=== PATIENT | male | born 1995 | race Caucasian/White ===

== ENCOUNTER 2020-05-14 07:30 | Outpatient (REF) | payer BC, SELFPAY ==
[2020-05-14 08:37] LABS: MANUAL DIFF FLAG NO
[2020-05-14 08:42] LABS: Basophils Percent Auto 0.5 % (0-2); Eosinophils Absolute Auto 0.1 X10*3/uL (0.0-0.4); Hematocrit 45.6 % (42-52); Lymphocytes Absolute Auto 1.8 X10*3/uL (1.2-4.9); Lymphocytes Percent Auto 44.8 % (20-40); Mean Corpuscular HGB Conc 35.1 g/dl (31.0-36.0); Mean Corpuscular Hemoglobin 31.7 pg (27.0-33.0); Mean Corpuscular Volume 90.3 fL (80-98); Mean Platelet Volume 9.6 fL (9.4-12.4); Monocytes Absolute Auto 0.5 X10*3/uL (0.1-1.2); Monocytes Percent Auto 12.1 % (2-11); Neutrophils Absolute Auto 1.6 X10*3/uL (2.0-8.3); Neutrophils Percent Auto 39.6 % (45-73); Platelet Count 226 X10*3/uL (160-400); Red Blood Count 5.05 X10*6/uL (4.60-5.80); Red Cell Distribution Width 11.9 % (11.0-16.0); White Blood Count 4.1 X10*3/uL (4.8-10.8)
[2020-05-14 09:16] LABS: Alanine Aminotransferase 13 U/L (0-40); Albumin Level 4.6 g/dL (3.5-5.0); Alkaline Phosphatase 54 U/L (39-117); Anion Gap 12 (12-20); Aspartate Amino Transferase 19 U/L (5-37); Bilirubin Total 1.3 mg/dL (0.0-1.0); Blood Urea Nitrogen 18 mg/dL (9-16); Calcium 9.1 mg/dL (8.4-10.2); Carbon Dioxide 26 mmol/L (22-29); Chloride 106 mmol/L (96-108); Cholesterol 153 mg/dL; Estimated Glomerular Filt Rate > 60; Glucose Fasting 76 mg/dL (60-99); HDL Cholesterol 70 mg/dL; LDL Cholesterol Calculated 72 mg/dl; Sodium 140 mmol/L (135-145); Total Protein 6.9 g/dL (6.5-8.0); Triglycerides 55 mg/dL
[2020-05-14 10:57] LABS: Thyroid Stimulating Hormone 1.96 mIU/mL (0.32-4.0)
== END 2020-05-14 07:31 | disposition home or self-care (01) ==
LOC: HO.LAB 07:30
PROVIDERS: PCP Internal Medicine; Visit Provider Internal Medicine
DX: E03.9 Hypothyroidism, unspecified (principal); E11.9 Type 2 diabetes mellitus without complications; L65.9 Nonscarring hair loss, unspecified
CPT/HCPCS: 36415; 80053; 80061; 84443; 85025

== ENCOUNTER 2020-07-04 09:48 | Outpatient (REF) | payer BC, SELFPAY ==
[2020-07-04 11:05] LABS: Ferritin 435 ng/mL (20-250)
[2020-07-04 11:20] LABS: Thyroid Stimulating Hormone 1.23 uIU/mL (0.32-4.0)
== END 2020-07-04 09:49 | disposition home or self-care (01) ==
LOC: HO.LAB 09:48
PROVIDERS: PCP Internal Medicine; Visit Provider Physician Assistant Medical
DX: L70.0 Acne vulgaris (principal); L65.0 Telogen effluvium; L64.8 Other androgenic alopecia; L21.8 Other seborrheic dermatitis
CPT/HCPCS: 82728; 84443

== ENCOUNTER 2020-07-09 01:17 | Emergency (ER) | payer BC, SELFPAY ==
[2020-07-09 01:32] VITALS: BP 125/50; PULSE 66; RESP 16; TEMP 36.4; O2SAT 99; BMI 21.8
--- NOTE | 2020-07-09 01:32 | ED_ITS ---
HPI - Male Genitourinary General Chief complaint: Urogenital-Male Stated complaint: testicular pain Time Seen by Provider: 07/09/20 01:31 Source: patient Mode of arrival: ambulatory Limitations: no limitations History of Present Illness HPI Narrative: This is a 25-year-old male who presents with complaints of right testicular pain that started approximately 3-4 hours ago and is associated with erythema, swelling, and noted to be ?higher? than the other 1 without any associated penile discharge or lesions noted. Related Data Home Medications Medication Instructions Recorded Confirmed azelaic acid 15 % topical foam TOPICAL QAM 05/07/20 05/07/20 tazarotene 0.1 % topical foam TOPICAL 05/07/20 05/07/20 Previous Rx's Medication Instructions Recorded doxycycline monohydrate 100 mg PO BID 10 Days #20 cap 07/09/20 Allergies Allergy/AdvReac Type Severity Reaction Status Date / Time No Known Allergies Allergy Verified 05/07/20 13:03 Review of Systems Review of Systems: Pertinent positives and negatives as stated in HPI 10 point review of systems is otherwise negative. PMFSH Past Medical History Source: nursing notes reviewed Surgical History History of excision of pilonidal cyst History of wisdom tooth extraction Family History Family History Father Alive and well Mother Alive and well Social History Social History Alcohol intake: current Alcohol intake frequency: a few times a week Smoking Status: Never smoker Use of substances other than those prescribed or required for medical reasons: No Advance Directives: No Physical Exam Vital Signs: Vital Signs: Last Vital Signs Temp 97.6 F 07/09/20 01:32 Pulse 66 07/09/20 01:32 Resp 16 07/09/20 01:32 BP 125/50 L 07/09/20 01:32 Pulse Ox 99 07/09/20 01:32 Body Mass Index 21.8 VITAL SIGNS: Reviewed. GENERAL: Well developed, well nourished, in no acute distress. HEAD: Normocephalic/atraumatic, EYES: PERRLA, EOMI intact without pain, no nystagmus/pallor/icterus noted EARS: Ext canals without abnormality, TMs non-bulging and non-erythematous NOSE: Nares patent bilateral OROPHARYNX: no oral lesions noted, posterior pharynx clear and non-erythematous without noted tonsillar enlargement/erythema/exudates NECK: Supple, no adenopathy LUNGS: Normal breath sounds. No adventitious sounds or accessory muscle use. SpO2<97> CARDIOVASCULAR: Regular rate and rhythm without noted murmurs, no JVD or lower extremity edema. ABDOMEN: Soft, non-tender, non-distended with bowel sounds. No rigidity. No guarding. 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 EXTREMITIES: No cyanosis, clubbing or edema. SKIN: Inspection of the skin reveals no rashes, ulcerations, jaundice, pallor, or petechiae. NEUROLOGIC: Alert and oriented x 4. Strength and sensation to light touch were grossly intact x 4. Course Course Course Narrative: This is a 25-year-old male with history and clinical presentation of acute onset right testicular pain and will rule out testicular torsion versus epididymitis versus inflamed epididymal cyst. On review of all investigations there is evidence of epididymitis but negative for torsion. Urine was sent for STI and patient was empirically treated for epididymitis etiologies based on age. All results and findings were discussed with him at bedside. Discharge Plan Discharge Clinical Impression: Epididymitis Patient Disposition: Home, Self-Care Instructions: Epididymitis (ED) Additional Instructions: 1. Scrotal elevation when lying down with a small towel try folded under the scrotum. Treat pain with [id number] Tylenol and ibuprofen as directed on the outside packaging. 2. Please follow-up with your primary care provider so that the antibiotics can be adjusted based on urine results. The patient and/or family acknowledge understanding of results (as applicable), diagnosis, treatment plan, need for follow up, and symptoms that should prompt a return to the emergency room. Prescriptions: New doxycycline monohydrate 100 mg capsule 100 mg PO BID 10 Days Qty: 20 RF: 0 No Action Finacea 15 % foam topical QAM RF: 0 Fabior 0.1 % foam topical RF: 0 Referrals: Lainer,Eric C, MD [Primary Care Provider] - 2 days (Re-evaluation and outpatient management for right testicular pain and patient found to have epididymitis and was empirically treated for STI, however please follow-up on urine results.)
--- NOTE | 2020-07-09 01:49 | PC.NURSE ---
PT REPORTING RIGHT TESTICLE PAINx4-5 HOURS, ASSOCIATED WITH SWELLING, RIGHT TESTICLE SITTING HIGHER THAN LEFT AND PAIN RADIATING INTO LOWER ABD. MD GUTIERREZ AT BEDSIDE FOR PRIMARY EVAL.
--- NOTE | 2020-07-09 01:53 | US_ITS ---
EXAMINATION: US SCROTUM CLINICAL INFORMATION: Right testicular pain. COMPARISON: 03/21/2016. TECHNIQUE: A sonogram of the scrotum was performed assessing soto-scale appearance and color Doppler flow. FINDINGS: RIGHT: Right testicle measures 4.7 x 2.6 x 3.4 cm, volume 21.2 mL. Parenchymal echotexture is normal. No focal testicular parenchymal lesions are visualized. Normal symmetric intratesticular flow is visualized. Right epididymal head is normal in size. There is increased flow in size to the right epididymal body and tail. There is a small right hydrocele. No varicocele is seen. LEFT: Left testicle measures 4.9 x 2.1 x 3.1 cm, volume 16.9 mL. Parenchymal echotexture is normal. No focal testicular parenchymal lesions are visualized. Normal symmetric intratesticular flow is visualized. Left epididymal head is normal in size. No left hydrocele or varicocele is seen. US/US scrotum doppler IMPRESSION: Normal testes. No testicular torsion. Increased size and vascular flow to the body and tail of the right epididymis suggestive of epididymitis. Small right hydrocele.
--- NOTE | 2020-07-09 02:15 | US_ITS ---
EXAMINATION: US SCROTUM CLINICAL INFORMATION: Right testicular pain. COMPARISON: 03/21/2016. TECHNIQUE: A sonogram of the scrotum was performed assessing soto-scale appearance and color Doppler flow. FINDINGS: RIGHT: Right testicle measures 4.7 x 2.6 x 3.4 cm, volume 21.2 mL. Parenchymal echotexture is normal. No focal testicular parenchymal lesions are visualized. Normal symmetric intratesticular flow is visualized. Right epididymal head is normal in size. There is increased flow in size to the right epididymal body and tail. There is a small right hydrocele. No varicocele is seen. LEFT: Left testicle measures 4.9 x 2.1 x 3.1 cm, volume 16.9 mL. Parenchymal echotexture is normal. No focal testicular parenchymal lesions are visualized. Normal symmetric intratesticular flow is visualized. Left epididymal head is normal in size. No left hydrocele or varicocele is seen. US/US scrotum IMPRESSION: Normal testes. No testicular torsion. Increased size and vascular flow to the body and tail of the right epididymis suggestive of epididymitis. Small right hydrocele.
[2020-07-09] MEDS: Acetaminophen 325 MG TABLET 975 MG PO (03:29)
[2020-07-09] MEDS: Ibuprofen 400 MG TABLET PO (03:30)
[2020-07-09] MEDS: cefTRIAXone sodium 250 MG, Lidocaine HCl 1 % MPF 0.9 ML IM (03:30)
[2020-08-02 09:15] LABS: CT PCR NOT DETECTED (Not Detect.); NG PCR NOT DETECTED (Not Detect.)
== END 2020-07-09 03:37 | disposition home or self-care (01) ==
PROVIDERS: Emergency Provider Student in an Organized Health Care Education/Training Program; PCP Internal Medicine
DX: N45.1 Epididymitis (principal); R10.30 Lower abdominal pain, unspecified; N50.812 Left testicular pain; N50.811 Right testicular pain; Z79.899 Other long term (current) drug therapy
CPT/HCPCS: 76870; 87491; 87591; 93975; 96372; 99284; J0696

== ENCOUNTER 2021-05-21 09:28 | Outpatient (REF) | payer BC, SELFPAY ==
--- NOTE | ~2021-05-21 | XR_ITS ---
EXAMINATION: XR KNEE, RIGHT XR KNEE, LEFT CLINICAL INFORMATION: Pain COMPARISON: None TECHNIQUE: 4 views of each knee, including AP and lateral upright views. FINDINGS: Left knee: No fracture or subluxation. Compartmental joint spaces are maintained. No joint effusion. The soft tissues are unremarkable. Right knee: No fracture or subluxation. Compartmental joint spaces are maintained. No joint effusion. The soft tissues are unremarkable. XR/XR knee RT 4V IMPRESSION: Unremarkable appearance of both knees.
--- NOTE | ~2021-05-21 | XR_ITS ---
EXAMINATION: XR KNEE, RIGHT XR KNEE, LEFT CLINICAL INFORMATION: Pain COMPARISON: None TECHNIQUE: 4 views of each knee, including AP and lateral upright views. FINDINGS: Left knee: No fracture or subluxation. Compartmental joint spaces are maintained. No joint effusion. The soft tissues are unremarkable. Right knee: No fracture or subluxation. Compartmental joint spaces are maintained. No joint effusion. The soft tissues are unremarkable. XR/XR knee LT 4V IMPRESSION: Unremarkable appearance of both knees.
== END 2021-05-21 09:29 | disposition home or self-care (01) ==
LOC: HO.XRAY 09:28
PROVIDERS: PCP Internal Medicine; Visit Provider Nurse Practitioner Family
DX: M25.561 Pain in right knee (principal); M25.562 Pain in left knee; G89.29 Other chronic pain
CPT/HCPCS: 73564

== ENCOUNTER 2021-06-05 09:48 | Outpatient (REF) | payer BC, SELFPAY ==
[2021-06-05 10:29] LABS: Hematocrit 45.8 % (42.0-52.0); Hemoglobin 16.1 g/dl (14.0-18.0); Mean Corpuscular HGB Conc 35.2 g/dl (31.0-36.0); Mean Corpuscular Hemoglobin 31.7 pg (27.0-33.0); Mean Corpuscular Volume 90.2 fL (80.0-98.0); Mean Platelet Volume 9.5 fL (9.4-12.4); Platelet Count 240 X10*3/uL (160-400); Red Blood Count 5.08 X10*6/uL (4.60-5.80); Red Cell Distribution Width 11.9 % (11.0-16.0); White Blood Count 4.8 X10*3/uL (4.8-10.8)
[2021-06-05 10:41] LABS: Anion Gap 14 (12-20); Blood Urea Nitrogen 20 mg/dL (9-16); Calcium 9.2 mg/dL (8.4-10.2); Carbon Dioxide 24 mmol/L (22-29); Chloride 106 mmol/L (96-108); Cholesterol 149 mg/dL; Estimated Glomerular Filt Rate > 60; Glucose Random 82 mg/dL (60-115); HDL Cholesterol 63 mg/dL; LDL Cholesterol Calculated 78 mg/dl; Potassium 4.5 mmol/L (3.3-5.1); Sodium 139 mmol/L (135-145); Triglycerides 40 mg/dL
== END 2021-06-05 09:49 | disposition home or self-care (01) ==
LOC: HO.LAB 09:48
PROVIDERS: PCP Internal Medicine; Visit Provider Nurse Practitioner Family
DX: Z00.00 Encounter for general adult medical examination without abnormal findings (principal); G89.29 Other chronic pain; M25.569 Pain in unspecified knee; L65.9 Nonscarring hair loss, unspecified
CPT/HCPCS: 36415; 80048; 80061; 85027

== ENCOUNTER 2021-07-08 07:55 | Outpatient (REF) | payer BC, SELFPAY ==
[2021-07-08 08:14] LABS: COVID-19 Test Positive (Negative)
== END 2021-07-08 07:56 | disposition home or self-care (01) ==
LOC: HO.LAB 07:55
PROVIDERS: PCP Internal Medicine; Visit Provider Internal Medicine
DX: Z20.822 Contact with and (suspected) exposure to COVID-19 (principal)
CPT/HCPCS: 36415; 87635; C9803

== ENCOUNTER 2022-06-13 08:33 | Outpatient (REF) | payer BC, SELFPAY | END 2022-06-13 08:34 | disposition home or self-care (01) | LOC: HO.SH 08:33 | PROVIDERS: Visit Provider Internal Medicine | DX: Z01.118 Encounter for examination of ears and hearing with other abnormal findings (principal); H93.293 Other abnormal auditory perceptions, bilateral; H93.13 Tinnitus, bilateral | CPT/HCPCS: 92557; 92567 ==

== ENCOUNTER 2022-06-13 09:27 | Outpatient (REF) | payer SELFPAY ==
--- NOTE | 2022-06-13 16:04 | MHC.AU.CER ---
Cerumen Removal- Binaural Date of Visit: 06/13/22 Medical Conditions: Tinnitus; No Conditions of Concern for Cerumen Removal Medications: No Medications of Concern for Cerumen Removal Procedure: Right Ear: Unusual Findings: No Unusual Findings Prior to Removal: Clear Canal Outcome of Procedure: No cerumen removal performed on this ear Left Ear: Unusual Findings: No Unusual Findings Prior to Removal: Significant Cerumen Present Outcome of Procedure: Most cerumen was removed. Recommendations: Follow-up as needed Diagnosis Code(s): Primary Diagnosis: H93.293 Abnormal Auditory Perception Secondary Diagnosis: H93.13 Tinnitus, Bilateral Services Performed: Cerumen Removal (CPT 51045) One Ear Signature: Provider: Sravanthi Sánchez, [facility]
== END 2022-06-13 09:28 | disposition home or self-care (01) ==
LOC: HO.HAP 09:27
PROVIDERS: Visit Provider Internal Medicine
DX: Z46.1 Encounter for fitting and adjustment of hearing aid (principal); H93.293 Other abnormal auditory perceptions, bilateral
CPT/HCPCS: 92700

== ENCOUNTER 2022-11-05 09:05 | Outpatient (REF) | payer BC, SELFPAY ==
[2022-11-05 09:16] LABS: MANUAL DIFF FLAG NO
[2022-11-05 09:33] LABS: Basophils Percent Auto 0.7 % (0-2); Eosinophils Absolute Auto 0.1 X10*3/uL (0.0-0.4); Eosinophils Percent Auto 3.5 % (0-4); Hematocrit 42.6 % (42.0-52.0); Hemoglobin 15.2 g/dl (14.0-18.0); Lymphocytes Absolute Auto 1.7 X10*3/uL (1.2-4.9); Lymphocytes Percent Auto 42.6 % (20-40); Mean Corpuscular HGB Conc 35.7 g/dl (31.0-36.0); Mean Corpuscular Hemoglobin 30.6 pg (27.0-33.0); Mean Corpuscular Volume 85.7 fL (80.0-98.0); Mean Platelet Volume 9.1 fL (9.4-12.4); Monocytes Absolute Auto 0.5 X10*3/uL (0.1-1.2); Monocytes Percent Auto 12.4 % (2-11); Neutrophils Absolute Auto 1.7 x10*3/uL (2.0-8.3); Neutrophils Percent Auto 40.8 % (45-73); Platelet Count 235 X10*3/uL (160-400); Red Blood Count 4.97 X10*6/uL (4.60-5.80)
[2022-11-05 10:00] LABS: Alanine Aminotransferase 32 U/L (0-40); Albumin Level 4.5 g/dL (3.5-5.0); Alkaline Phosphatase 52 U/L (39-117); Anion Gap 10 (12-20); Aspartate Amino Transferase 18 U/L (5-37); Bilirubin Direct 0.7 mg/dL (0.0-0.5); Bilirubin Total 2.2 mg/dL (0.0-1.0); Blood Urea Nitrogen 16 mg/dL (9-16); Calcium 9.3 mg/dL (8.4-10.2); Carbon Dioxide 27 mmol/L (22-29); Chloride 108 mmol/L (96-108); Cholesterol 154 mg/dL; Estimated Glomerular Filt Rate > 60; Glucose Fasting 91 mg/dL (60-99); HDL Cholesterol 63 mg/dL; LDL Cholesterol Calculated 83 mg/dl; Potassium 4.4 mmol/L (3.3-5.1); Sodium 141 mmol/L (135-145); Total Protein 6.4 g/dL (6.5-8.0); Triglycerides 44 mg/dL
[2022-11-07 08:42] LABS: HIV AB/AG Nonreactive (Nonreactive); HIV Num 1 0.07 S/CO (0.00-0.99); ~HepC Num1 0.11 S/CO (0.00-0.79); ~Hepatitis C Antibody Nonreactive (Nonreactive)
[2022-11-07 08:54] LABS: Syphilis Screen Nonreactive (Nonreactive)
[2022-11-08 02:29] LABS: Herpes Simplex Type 1 IgG <0.90 index; Herpes Simplex Type 2 IgG <0.90 index
== END 2022-11-05 09:06 | disposition home or self-care (01) ==
LOC: HO.LAB 09:05
PROVIDERS: Absent Provider Physician Assistant Medical; PCP Internal Medicine; Visit Provider Internal Medicine
DX: E78.5 Hyperlipidemia, unspecified (principal); I10 Essential (primary) hypertension; Z20.2 Contact with and (suspected) exposure to infections with a predominantly sexual mode of transmission; L64.8 Other androgenic alopecia; L21.8 Other seborrheic dermatitis; L81.7 Pigmented purpuric dermatosis
CPT/HCPCS: 36415; 80053; 80061; 80076; 82248; 85025; 86695; 86696; 86780; 86803; 87389

== ENCOUNTER 2023-06-28 09:58 | Outpatient (AMB) | payer BC, SELFPAY ==
[2023-06-28 09:59] VITALS: BP 106/62; PULSE 57; O2SAT 98; BMI 21.8
--- NOTE | 2023-06-28 09:59 | A.OFFPC_ITS ---
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 Bridge Required: No Recoil Spring Winder: Not Required per policy Accompanied by: Self / Same As Patient Allergies No Known Allergies Allergy (Verified 06/28/23 10:00) Medication List - Last Reconciled 06/28/23 by Eric Bobby MD adapalene-benzoyl peroxide 0.3-2.5 % (Epiduo Forte) 1 appl topical BEDTIME minoxidil 2.5 mg PO BID Tobacco use date assessed: 06/28/23 Dental Screening Dental Screen Date: 06/28/23 Did you have a dental visit in the last 12 months?: Yes Did you have a dental problem in the last 6 months where you did not have access to dental care?: No Was dental information given to patient?: Patient has dentist HPI PE HPI Details healthy [facility] Surgical History History of excision of pilonidal cyst History of wisdom tooth extraction Family History Father Alive and well Mother Alive and well Social History Housing: House Alcohol intake: current Alcohol intake frequency: a few times a week Patient Tobacco Use Status: Never used Tobacco Tobacco use type: Cigarette e-Cigarette/Vaping Use: Never Used Second Hand Smoke Exposure: No service: No Current occupational status: employed Cognitive needs: No Hearing needs: No Vision needs: No Questionnaire PHQ-9 Over the last 2 weeks, how often have you been bothered by any of the following problems? 1. Little interest or pleasure in doing things: not at all 2. Feeling down, depressed, or hopeless: not at all 3. Trouble falling or staying asleep, or sleeping too much: not at all 4. Feeling tired or having little energy: not at all 5. Poor appetite or overeating: not at all 6. Feeling bad about yourself - or that you are a failure or have let yourself or your family down: not at all 7. Trouble concentrating on things, such as reading the newspaper or watching television: not at all 8. Moving or speaking so slowly that other people could have noticed. Or the opposite - being so fidgety or restless that you have been moving around a lot more than usual: not at all 9. Thoughts that you would be better off or of hurting yourself in some way: not at all Total score: 0 Depression Screening Interpretation: Negative Depression Screening Done: Yes Source: Developed by Drs. Alessandro Encinas, Soniya Bills, Evangelist Tatum and colleagues, with an educational nuria from [employer]. Thrive Questionnaire Date Thrive assessed: 06/28/23 I am a: Patient What is your living situation today?: I have a steady place to live Within the past 12 months, did the food you bought not last and you didn't have the money to get more?: Never true Within the past 12 months, did you worry whether your food would run out before you got money to buy more?: Never true Do you have trouble paying for medicines?: No Do you have trouble getting transportation to medical appointments?: No Do you have trouble paying your heating and electricity bill?: No Do you have trouble taking care of your child, family member or friend?: No Do you have trouble with day-to-day activities such as bathing, preparing meals, shopping, managing finances, etc.?: No Are you currently unemployed and looking for a job?: No Are you interested in more education?: No Please select the resources that you would like help with: None AUDIT C Alcohol Use Questionnaire (AUDIT-C) 1. How often do you have a drink containing alcohol?: Monthly or less 2. How many drinks containing alcohol do you have on a typical day when you are drinking?: 1 or 2 3. How often do you have six or more drinks on one occasion?: Never Total Score: 1 ERVIN-7 AMB Questionnaire ERVIN-7 Date ERVIN - 7 assessed: 06/28/23 Feeling nervous, anxious, or on edge: 0 = Not at all Not being able to stop or control worryin = Not at all Worrying too much about different things: 0 = Not at all Trouble relaxin = Not at all Being so restless that it is hard to sit still: 0 = Not at all Becoming easily annoyed or irritable: 0 = Not at all Feeling afraid as if something awful might happen: 0 = Not at all Total ERVIN-7 score (0-4 normal; 5-9 mild; 10-14 moderate; 15-21 severe): 0 Source: Developed by Drs. Alessandro Encinas, Soniya Bills, Evangelist Tatum and colleagues, with an educational nuria from [employer]. Review of Systems Const Denies chills, Denies fatigue, Denies headache(s) and Denies weight loss Eyes Denies change in vision, Denies diplopia and Denies eye pain ENT Denies vertigo, Denies dizziness, Denies headache(s) and Denies nasal discharge Card Denies chest pain, Denies rapid heart rate and Denies dyspnea on exertion Resp Denies chest congestion, Denies cough, Denies pain with cough and Denies dyspnea on exertion GI Denies abdominal pain, Denies hematochezia and Denies change in bowel habits Musc Denies myalgias, Denies arthralgias and Denies joint swelling Skin/Breast Denies lesions and Denies unusual bruising Neuro Denies vertigo, Denies dizziness, Denies headache(s) and Denies focal weakness Endo Denies fatigue Physical exam (Primary Care) Vital Signs: Last Vital Signs Pulse 57 06/28/23 09:59 BP 106/62 06/28/23 09:59 Pulse Ox 98 06/28/23 09:59 Oxygen Delivery Method Room Air 06/28/23 09:59 BMI result Body Mass Index 21.8 Tobacco/Smoking Status: Tobacco use Status Tobacco use date assessed 06/28/23 06/28/23 10:06 Patient Tobacco Use Status Never used Tobacco 06/28/23 10:06 Tobacco use type Cigarette 06/28/23 10:06 e-Cigarette/Vaping Use Never Used 06/28/23 10:06 PHQ-9: PHQ-9 Score PHQ-9: Total score 0 06/28/23 10:14 Depression Screening Interpretation: Negative Thrive Assessment: Date of Thrive Assessment Date Thrive assessed 06/28/23 06/28/23 10:06 Const General: cooperative, healthy appearing and no acute distress Orientation/consciousness: oriented to person, oriented to place and oriented to time HENMT Head: Yes normal to inspection, Yes normocephalic and Yes atraumatic Mouth: Normal oral and palatal mucosa present and tongue normal Throat: Yes posterior oropharynx normal and Yes uvula midline Eyes General: appearance normal, both eyes and all related structures Neck Neck: Yes normal visual inspection, Yes full ROM and Yes no lymphadenopathy Thyroid: Thyroid normal Carotids: normal carotid upstroke Chest Chest palpation & inspection: normal inspection of the chest Resp Effort & Inspection: normal respiratory effort and able to speak in complete sentences Auscultation: clear to auscultation bilaterally Cardio Jugular venous distension: no JVD Palpation: normal PMI Rate: regular rate Rhythm: regular rhythm Heart sounds: S1 normal heart sound present and S2 normal heart sound present GI Inspection: Yes normal to inspection Palpation (GI): Soft to palpation and No hepatosplenomegaly present Auscultation: normal bowel sounds General: Yes no CVA tenderness Back/Spine/Pelvis Back: no CVA tenderness Skin General skin exam: no rashes or lesions noted Neuro General: oriented to person, oriented to place and oriented to time Extrem General: Yes normal to inspection and Yes full ROM Assessment and Plan Assessment & Plan (1) Physical exam, annual: Code(s): Z00.00 - Encounter for general adult medical examination without abnormal findings Plan: do labs Orders: Orders Complete Blood Count Auto Diff Today D64.9 - Anemia, unspecified Comprehensive [place]. Panel Fast Today N28.9 - Disorder of kidney and ureter, unspecified Syphilis Screen Today Z20.2 - Contact with and (suspected) exposure to infections with a predominantly sexual mode of transmission Hepatitis C Antibody Today Z20.2 - Contact with and (suspected) exposure to infections with a predominantly sexual mode of transmission Lipid Panel Today E78.5 - Hyperlipidemia, unspecified HIV Ab/Ag Today Z20.2 - Contact with and (suspected) exposure to infections with a predominantly sexual mode of transmission HPV E6/E7 RFLX TARA 16 18/45 Today L65.9 - Nonscarring hair loss, unspecified NE nerve conduction velocity Today G56.00 - Carpal tunnel syndrome, unspecified upper limb Coding Level of Care Code Est Pt Prev Care 18-39y(83275) Diagnoses Physical exam, annual Z00.00 Additional Codes PHQ-9 - 98394 - PHQ-9 Billing: ([id number])
== END 2023-06-28 10:20 | disposition home or self-care (01) ==
PROVIDERS: PCP Internal Medicine; Visit Provider Internal Medicine
DX: Z00.00 Encounter for general adult medical examination without abnormal findings (principal)
CPT/HCPCS: 99395

== ENCOUNTER 2023-06-28 10:24 | Outpatient (REF) | payer BC, SELFPAY ==
[2023-06-28 10:36] LABS: MANUAL DIFF FLAG NO
[2023-06-28 12:06] LABS: Basophils Percent Auto 0.8 % (0-2); Eosinophils Absolute Auto 0.1 X10*3/uL (0.0-0.4); Eosinophils Percent Auto 2.4 % (0-4); Hematocrit 41.2 % (42.0-52.0); Hemoglobin 14.7 g/dl (14.0-18.0); Imm Gran Abs Auto 0.01 X10*3/uL (0.00-0.03); Imm Gran Pct Auto 0.3 % (0.0-0.4); Lymphocytes Absolute Auto 1.2 X10*3/uL (1.2-4.9); Lymphocytes Percent Auto 32.4 % (20-40); Mean Corpuscular HGB Conc 35.7 g/dl (31.0-36.0); Mean Corpuscular Volume 89.6 fL (80.0-98.0); Mean Platelet Volume 10.1 fL (9.4-12.4); Monocytes Absolute Auto 0.4 X10*3/uL (0.1-1.2); Monocytes Percent Auto 10.9 % (2-11); Neutrophils Percent Auto 53.2 % (45-73); Platelet Count 216 X10*3/uL (160-400); White Blood Count 3.8 X10*3/uL (4.8-10.8)
[2023-06-28 12:32] LABS: Alanine Aminotransferase 15 U/L (0-40); Albumin Level 4.5 g/dL (3.5-5.0); Alkaline Phosphatase 51 U/L (39-117); Anion Gap 11 (12-20); Aspartate Amino Transferase 17 U/L (5-37); Bilirubin Total 0.9 mg/dL (0.0-1.0); Blood Urea Nitrogen 16 mg/dL (9-16); Calcium 9.2 mg/dL (8.4-10.2); Carbon Dioxide 28 mmol/L (22-29); Chloride 106 mmol/L (96-108); Cholesterol 151 mg/dL (<200); Estimated Glomerular Filt Rate > 60; Glucose Fasting 84 mg/dL (60-99); HDL Cholesterol 66 mg/dL (>40); LDL Cholesterol Calculated 80 mg/dL (<100); Potassium 4.1 mmol/L (3.3-5.1); Sodium 141 mmol/L (135-145); Total Protein 6.8 g/dL (6.5-8.0); Triglycerides 27 mg/dL (<150)
[2023-06-28 12:46] LABS: HIV AB/AG Nonreactive (Nonreactive); HIV Num 1 0.04 S/CO (0.00-0.99); Syphilis Screen Nonreactive (Nonreactive); ~HepC Num1 0.09 S/CO (0.00-0.79); ~Hepatitis C Antibody Nonreactive (Nonreactive)
== END 2023-06-28 10:25 | disposition home or self-care (01) ==
LOC: HO.LAB 10:24
PROVIDERS: PCP Internal Medicine; Visit Provider Internal Medicine
DX: Z11.4 Encounter for screening for human immunodeficiency virus [HIV] (principal); D64.9 Anemia, unspecified; N28.9 Disorder of kidney and ureter, unspecified; E78.5 Hyperlipidemia, unspecified; Z20.2 Contact with and (suspected) exposure to infections with a predominantly sexual mode of transmission
CPT/HCPCS: 36415; 80053; 80061; 85025; 86780; 86803; 87389

== ENCOUNTER 2023-07-13 07:46 | Outpatient (REF) | payer OTHER, BC, SELFPAY ==
--- NOTE | 2023-07-13 07:49 | EMG_ITS ---
Bilateral median and ulnar motor and sensory studies were performed. Bilateral radial and median and lateral antecubital brachial sensory studies were performed and paraspinal muscles were tested with a needle. IMPRESSION: Mild bilateral ulnar neuropathy across cubital tunnel. No evidence of median neuropathy or radiculopathy. MD LORENZO Asif/KIET / [id number]
== END 2023-07-13 07:47 | disposition home or self-care (01) ==
LOC: HO.NEURO 07:46
PROVIDERS: PCP Internal Medicine; Visit Provider Internal Medicine
DX: G56.03 Carpal tunnel syndrome, bilateral upper limbs (principal)
CPT/HCPCS: 95886; 95913

== ENCOUNTER 2023-09-15 09:21 | Outpatient (AMB) | payer OTHER, BC, SELFPAY ==
--- NOTE | 2023-09-15 09:24 | MHC.OFFVIS ---
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 EMG done on 07/13/23. Patient reports his symptoms started with bilateral wrist pain back in 2018, then started to have off and on numbness in the tips of his fingers for 6 months. He states that the right hand is worse than the left hand. Patient states that his symptoms get worse when he is at work mainly typing. Resting makes his pain feel a bit better. 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 The patient reports having wrist pain back in 2018 and then started to have intermittent numbness in all of his finger tips for 6 months. He report his right hand is worse then his left hand. Patient states he first noticed the numbness about 6 years ago. He would try different things that did give some relief. He reports increased pain that transitioned to numbness and tingling in the bilateral hands over the summer. He states the numbness and tingling is intermittent. He states the right middle and index finger are his worse and he states it is affected by him typing. He states he has pain in the bilateral wrist. He reports resting makes the pain feel a little bit better. He states very little pressure will cause the fingers to ?go to sleep?. He claims he feels his fingers are colder then usual. He also reports cracking in the wrist. He confirms having wrist braces that he has been using at work, but is not sure if this has helped him. 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 Patient has a medical history of alopecia. Patient is accompanied in the office today by a female anesthesia attending. 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 No ecchymosis, erythema, or edema. Able to perform full finger flexion, extension, abduction, adduction, finger cross, okay sign, and thumbs up without deficit. Able to make a closed fist. Negative Tinel?s at the carpal tunnel. Negative Phalen?s. Sensation intact. Capillary refill is brisk. Radial pulse intact. Bilateral elbows: Normal to inspection. No ecchymosis, erythema, or edema. No tenderness to palpation over the olecranon. No tenderness to the medial or lateral epicondyle. Negative Tinel?s at the cubital tunnel. NVI. Assessment & Plan Assessment & Plan (1) Cubital tunnel syndrome of both upper extremities: Code(s): G56.23 - Lesion of ulnar nerve, bilateral upper limbs (2) Bilateral hand pain: Code(s): M79.641 - Pain in right hand; M79.642 - Pain in left hand (3) Numbness and tingling in both hands: Code(s): R20.0 - Anesthesia of skin; R20.2 - Paresthesia of skin Plan Mr. Gray is a 28-year-old right hand dominant male who presents in the office today, as a new patient, for an evaluation of bilateral hand pain. The patient reports having wrist pain back in 2018 and then started to have intermittent numbness in all of his finger tips for 6 months. He report his right hand is worse then his left hand. Patient states he first noticed the numbness about 6 years ago. He would try different things that did give some relief. He reports increased pain that transitioned to numbness and tingling in the bilateral hands over the summer. He states the numbness and tingling is intermittent. He states the right middle and index finger are his worse and he states it is affected by him typing. He states he has pain in the bilateral wrist. He reports resting makes the pain feel a little bit better. He states very little pressure will cause the fingers to ?go to sleep?. He claims he feels his fingers are colder then usual. He also reports cracking in the wrist. He confirms having wrist braces that he has been using at work, but is not sure if this has helped him. 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 Patient has a medical history of alopecia. Patient is accompanied in the office today by a female anesthesia attending. We discussed possible surgical intervention, exercises, diet, and conservative treatments. At this time I do not feel confident that surgical intervention would be of benefit to the patient at this time based on the symptoms the patient is describing. I would prefer for the patient to be further evaluated by Dr. Le for a more in depth evaluation. I would like for the patient to evaluated by Rheumatology to further discuss some concerns the patient has. At this time I recommend wrist braces while at work and activity modification. Follow up will be with Dr. Le, or sooner if needed. EMG of the bilateral hands, obtained on 07/13/2023, revealed: Mild bilateral ulnar neuropathy across cubital tunnel. No evidence of median neuropathy or radiculopathy. Patient Instructions: Scribed by Payton Maurer biomedical service engineer, for Clair De La Rosa PA-C on 09/15/2023 at 9:23 am, EST. Coding Level of Care Code New Pt Level 4 (87571) Diagnoses Cubital tunnel syndrome of both upper extremities G56.23 Bilateral hand pain M79.641; M79.642 Numbness and tingling in both hands R20.0; R20.2
== END 2023-09-15 10:05 | disposition home or self-care (01) ==
PROVIDERS: PCP Internal Medicine; Visit Provider Physician Assistant
DX: G56.23 Lesion of ulnar nerve, bilateral upper limbs (principal); M79.641 Pain in right hand; M79.642 Pain in left hand; R20.0 Anesthesia of skin; R20.2 Paresthesia of skin
CPT/HCPCS: 99203

== ENCOUNTER → 2023-09-15 09:21 | Outpatient (BNVA) | payer BC, SELFPAY | PROVIDERS: PCP Internal Medicine; Visit Provider Physician Assistant ==

== ENCOUNTER 2023-10-25 09:41 | Outpatient (AMB) | payer OTHER, SELFPAY ==
--- NOTE | 2023-10-25 09:44 | A.OFFVIS_ITS ---
Intake Intake Visit Reasons: OV-B/L CTS -discuss surgery? Intake Note: Miguel A is a 28 year old right hand dominant male who presents to the office today to discuss B/L CTS. Pt states he is having the same issues as his visit in August with Clair. Pt states he is still having numbness and tingling in his fingertips. He states it is worse when he is typing. Allergies No Known Allergies Allergy (Verified 10/25/23 09:44) HPI OV-B/L CTS -discuss surgery? HPI Details Miguel A is a 28 year old right hand dominant man who presents to discuss his bilateral hand numbness. He complains of numbness in all his fingers bilaterally, R>L. Symptoms intermittent, but daily, worse with activities such as typing. 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 He denies any locking or catching. He denies any injury. He says he sleeps on his side at night, and he will wake up with one of his arms numb from the elbow to his fingers. He also complains of right forearm & wrist pain. He says he feels this pain daily, worse with gripping or lifting activities. He finds some relief wearing wrist braces at work. 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 He is seen today with his girlfriend. 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 Cognitive needs: No Hearing needs: No Vision needs: No Review of Systems Const All systems reviewed & are unremarkable except as noted in HPI and below Physical Exam Const General: cooperative, healthy appearing and no acute distress Orientation/consciousness: patient oriented x3 HEENT Head: Yes normocephalic and Yes atraumatic Eyes EOM: EOMs intact bilaterally Resp Effort & Inspection: normal respiratory effort and able to speak in complete sentences Cardio Jugular venous distension: no JVD Skin General skin exam: turgor normal Rashes: no rashes Neuro General: patient oriented x3 Extrem Other: Evaluation of Bilateral Upper Extremity: The patient is alert, oriented, and in no acute distress Neuro: Median, Ulnar, Radial nerves motor and sensory intact and sensation is normal to the tips of all digits today in clinic No thenar or intrinsic wasting Good APB muscle belly firing and good finger cross Vascular: Cap refill brisk ROM: He can make a fist and extend all his digits No locking or catching Skin: No lacerations or abrasions. General: No Ecchymosis. No Erythema or evidence of infection. Tender over the right dorsal proximal aspect of the forearm, distal to the lateral epicondyle Also tender over the dorsal aspect of the right distal forearm, in line with the 4th dorsal compartment tendons Nerve Conduction study: IMPRESSION: Mild bilateral ulnar neuropathy across cubital tunnel. No evidence of median neuropathy or radiculopathy. Sergio Brar MD 07/13/2023 Psych Appearance: grossly normal Affect: normal affect Attitude: cooperative Assessment & Plan Assessment & Plan (1) Cubital tunnel syndrome on right: Code(s): G56.21 - Lesion of ulnar nerve, right upper limb (2) Cubital tunnel syndrome on left: Code(s): G56.22 - Lesion of ulnar nerve, left upper limb (3) Numbness and tingling in both hands: Code(s): R20.0 - Anesthesia of skin; R20.2 - Paresthesia of skin (4) Right lateral epicondylitis: Code(s): M77.11 - Lateral epicondylitis, right elbow (5) Right hand tendonitis: Code(s): M77.8 - Other enthesopathies, not elsewhere classified Plan Assessment & Plan: 1. Right cubital tunnel syndrome, mild Symptoms intermittent, but daily, worse at night or with activity 2. Left cubital tunnel syndrome, mild Symptoms intermittent, but daily, worse at night or with activity 3. Bilateral hand numbness In the median nerve distribution, particularly the right index & middle fingers Symptoms intermittent, but daily, worse with activity Etiology unclear, NCS from 07/13/23 showed no evidence of carpal tunnel syndrome He is not able to have a new NCS performed until at least 01/12/24 I educated him about carpal tunnel syndrome No intervention at this time, he will take time to monitor his symptoms over the next few weeks. He will also be mindful to which fingers are effected, including the small fingers. He will also work on modifying his sleeping position at night to see if this improves his symptoms. 4. Right Lateral epicondylitis. 5. Right 4th dorsal compartment tendinitis involving the finger extensors I educated him about this condition I ordered OT hand therapy to work on normalizing function I discussed activity modification, he should limit or avoid any heavy or repetitive gripping or lifting activities. He will follow up in 4-6 weeks to see how he is doing Please note that greater than 45 minutes was spent with this patient going over the history, evaluating the patient and radiographs, formulating possible treatment options, discussing them with the patient, and documenting the visit. Scribed for Teodora Le MD by Dmitriy Mosley, medical education coordinator, on 10/25/23 at 10:05 AM, EST. Orders: Orders OT Evaluation and Treatment Today G56.21 - Lesion of ulnar nerve, right upper limb, M77.11 - Lateral epicondylitis, right elbow Coding Level of Care Code New Pt Level 4 (54102) Diagnoses Cubital tunnel syndrome on right G56.21 Cubital tunnel syndrome on left G56.22 Numbness and tingling in both hands R20.0; R20.2 Right lateral epicondylitis M77.11 Right hand tendonitis M77.8
== END 2023-10-25 11:02 | disposition home or self-care (01) ==
PROVIDERS: PCP Internal Medicine; Visit Provider Orthopaedic Surgery
DX: G56.23 Lesion of ulnar nerve, bilateral upper limbs (principal); R20.0 Anesthesia of skin; R20.2 Paresthesia of skin; M77.11 Lateral epicondylitis, right elbow; M77.8 Other enthesopathies, not elsewhere classified
CPT/HCPCS: 99214

== ENCOUNTER → 2023-10-25 09:41 | Outpatient (BNVA) | payer BC, SELFPAY | PROVIDERS: PCP Internal Medicine; Visit Provider Orthopaedic Surgery ==

== ENCOUNTER 2023-11-08 14:00 | Outpatient (REF) | payer OTHER, SELFPAY ==
--- NOTE | ~2023-11-08 | XR_ITS ---
EXAMINATION: XR HAND, RIGHT CLINICAL INFORMATION: Pain; question arthritis. COMPARISON: None available. TECHNIQUE: PA, lateral, and oblique views of the right hand. FINDINGS: The bones and soft tissues are normal. No fracture. Alignment is anatomic. Joint spaces are maintained. No erosions or soft tissue calcifications. XR/XR hand RT 2V IMPRESSION: Normal right hand. EXAMINATION: XR HAND, LEFT CLINICAL INFORMATION: Pain; question arthritis. COMPARISON: None available. TECHNIQUE: PA, lateral, and oblique views of the left hand. FINDINGS: The bones and soft tissues are normal. No fracture. Alignment is anatomic. Joint spaces are maintained. No erosions or soft tissue calcifications. IMPRESSION: Normal left hand.
--- NOTE | ~2023-11-08 | XR_ITS ---
EXAMINATION: XR ELBOW, RIGHT CLINICAL INFORMATION: Pain. COMPARISON: None available. TECHNIQUE: AP, lateral, and oblique views of the right elbow. FINDINGS: The bones and soft tissues are normal. No fracture or joint effusion. Alignment is anatomic. Joint spaces are maintained. XR/XR elbow LT 2V IMPRESSION: Normal right elbow. EXAMINATION: XR ELBOW, LEFT CLINICAL INFORMATION: Pain. COMPARISON: None available. TECHNIQUE: AP, lateral, and oblique views of the left elbow. FINDINGS: The bones and soft tissues are normal. No fracture or joint effusion. Alignment is anatomic. Joint spaces are maintained. IMPRESSION: Normal left elbow.
--- NOTE | ~2023-11-08 | XR_ITS ---
EXAMINATION: XR ELBOW, RIGHT CLINICAL INFORMATION: Pain. COMPARISON: None available. TECHNIQUE: AP, lateral, and oblique views of the right elbow. FINDINGS: The bones and soft tissues are normal. No fracture or joint effusion. Alignment is anatomic. Joint spaces are maintained. XR/XR elbow RT min 3V IMPRESSION: Normal right elbow. EXAMINATION: XR ELBOW, LEFT CLINICAL INFORMATION: Pain. COMPARISON: None available. TECHNIQUE: AP, lateral, and oblique views of the left elbow. FINDINGS: The bones and soft tissues are normal. No fracture or joint effusion. Alignment is anatomic. Joint spaces are maintained. IMPRESSION: Normal left elbow.
--- NOTE | ~2023-11-08 | XR_ITS ---
EXAMINATION: XR HAND, RIGHT CLINICAL INFORMATION: Pain; question arthritis. COMPARISON: None available. TECHNIQUE: PA, lateral, and oblique views of the right hand. FINDINGS: The bones and soft tissues are normal. No fracture. Alignment is anatomic. Joint spaces are maintained. No erosions or soft tissue calcifications. XR/XR hand LT 2V IMPRESSION: Normal right hand. EXAMINATION: XR HAND, LEFT CLINICAL INFORMATION: Pain; question arthritis. COMPARISON: None available. TECHNIQUE: PA, lateral, and oblique views of the left hand. FINDINGS: The bones and soft tissues are normal. No fracture. Alignment is anatomic. Joint spaces are maintained. No erosions or soft tissue calcifications. IMPRESSION: Normal left hand.
[2023-11-08 15:33] LABS: MANUAL DIFF FLAG NO
[2023-11-08 15:43] LABS: Basophils Percent Auto 0.5 % (0-2); Eosinophils Absolute Auto 0.1 X10*3/uL (0.0-0.4); Eosinophils Percent Auto 2.8 % (0-4); Hematocrit 39.1 % (42.0-52.0); Hemoglobin 14.2 g/dl (14.0-18.0); Imm Gran Abs Auto 0.01 X10*3/uL (0.00-0.03); Imm Gran Pct Auto 0.3 % (0.0-0.4); Lymphocytes Absolute Auto 1.5 X10*3/uL (1.2-4.9); Lymphocytes Percent Auto 38.8 % (20-40); Mean Corpuscular HGB Conc 36.3 g/dl (31.0-36.0); Mean Corpuscular Hemoglobin 31.9 pg (27.0-33.0); Mean Corpuscular Volume 87.9 fL (80.0-98.0); Mean Platelet Volume 9.3 fL (9.4-12.4); Monocytes Absolute Auto 0.5 X10*3/uL (0.1-1.2); Monocytes Percent Auto 12.5 % (2-11); Neutrophils Absolute Auto 1.8 x10*3/uL (2.0-8.3); Neutrophils Percent Auto 45.1 % (45-73); Platelet Count 208 X10*3/uL (160-400); Red Blood Count 4.45 X10*6/uL (4.60-5.80); Red Cell Distribution Width 11.9 % (11.0-16.0); White Blood Count 3.9 X10*3/uL (4.8-10.8)
[2023-11-08 16:13] LABS: Alanine Aminotransferase 11 U/L (0-40); Albumin Level 4.2 g/dL (3.5-5.0); Alkaline Phosphatase 57 U/L (39-117); Anion Gap 9 (12-20); Aspartate Amino Transferase 14 U/L (5-37); Blood Urea Nitrogen 13 mg/dL (9-16); C Reactive Protein < 0.04 mg/dL (< or = 0.50); Calcium 9.1 mg/dL (8.4-10.2); Carbon Dioxide 29 mmol/L (22-29); Chloride 104 mmol/L (96-108); Estimated Glomerular Filt Rate > 60; Glucose Random 93 mg/dL (60-115); Potassium 4.1 mmol/L (3.3-5.1); Sodium 138 mmol/L (135-145); Total Protein 6.5 g/dL (6.5-8.0); Uric Acid 3.5 mg/dL (3.4-7.0)
[2023-11-08 16:26] LABS: Erythrocyte Sedimentation Rate 1 MM/HR (0-15)
[2023-11-08 17:47] LABS: Rheumatoid Factor < 13.0 IU/mL (<15.0)
[2023-11-09 12:53] LABS: Anti Nuclear Antibody Screen NEGATIVE (NEGATIVE)
[2023-11-09 13:33] LABS: Anti DNA DS Antibody <1 IU/mL; Antibody to SS-A Antigen <1.0 NEG AI (<1.0 NEG); Antibody to SS-B Antigen <1.0 NEG AI (<1.0 NEG); Myeloperoxidase Antibody <1.0 AI; Proteinase 3 PR3 Antibodies <1.0 AI; SM/Ribonucleoprotein Ab <1.0 NEG AI (<1.0 NEG); Scleroderma 70 Antibody <1.0 NEG AI (<1.0 NEG); Smith Protein <1.0 NEG AI (<1.0 NEG)
[2023-11-09 14:08] LABS: Cyclic Citrullinated Peptide <16 UNITS
[2023-11-09 14:38] LABS: Complement C3 58 mg/dL (82-185)
[2023-11-09 20:48] LABS: Anti-Centromere B Antibodies <1.0 NEG AI (<1.0 NEG)
[2023-11-09 22:09] LABS: Prot Elec - Albumin 4.5 g/dL (3.8-4.8); Prot Elec - Alpha1 0.2 g/dL (0.2-0.3); Prot Elec - Alpha2 0.5 g/dL (0.5-0.9); Prot Elec - Beta 1 0.4 g/dL (0.4-0.6); Prot Elec - Beta 2 0.3 g/dL (0.2-0.5); Prot Elec - Gamma 0.8 g/dL (0.8-1.7); Prot Elec - Total Protein 6.6 g/dL (6.1-8.1)
[2023-11-14 10:53] LABS: IgA 232 mg/dL (47-310); IgG 861 mg/dL (600-1640); IgM 59 mg/dL (50-300)
== END 2023-11-08 14:01 | disposition home or self-care (01) ==
LOC: HO.LAB 14:00
PROVIDERS: PCP Internal Medicine; Visit Provider Nurse Practitioner Family
DX: M77.8 Other enthesopathies, not elsewhere classified (principal); M77.11 Lateral epicondylitis, right elbow; M79.641 Pain in right hand; M79.642 Pain in left hand; M25.521 Pain in right elbow; M25.522 Pain in left elbow; L81.7 Pigmented purpuric dermatosis
CPT/HCPCS: 36415; 73070; 73080; 73120; 80053; 82550; 82784; 84165; 84550; 85025; 85652; 86021; 86038; 86140; 86160; 86200; 86225; 86235; 86334; 86431

== ENCOUNTER 2023-11-08 14:00 | Outpatient (AMB) | payer BC, SELFPAY ==
--- NOTE | 2023-11-08 14:11 | A.OFFVIS_ITS ---
Vital Signs 11/08/23 14:20 Height 6 ft 1 in Weight 165 lb 2.02 oz BMI 21.8 BP 96/60 Blood Pressure Location Rt brachial Position Sitting Pulse 62 Pulse Source Pulse Oximeter Pulse Oximetry (%) 98 Oxygen Delivery Method Room Air Intake Visit Reasons: autoimmune involvement causing multiple joint pain Intake Note: New patient, internally referred, presents to office today for joint pain. Joints affected: marv wrist and arms Pain began approx: 2018 Has tried: OT, oral meds, stretching Replenishment Buyer Required: No Accompanied by: girlfriend Allergies No Known Allergies Allergy (Verified 11/08/23 14:12) HPI Comments Details: Mr. Mares, 28-year-old male accompanied by his girlfriend, presents for evaluation of numbness and tingling to bilateral arms and hands. --Bilateral Wrist, right greater than left: wrist pain started 2018; tried ergonomic set ups at work but not improved. Worsened in 2022 --PCP ordered EMG - results showed cubital tunnel. --Ortho thought symptoms were combo of cubital, CTS and tendonitis. Hand Surgeon referred to OT - OT therapist --pain continuous, but not worsened with movement - [place] with texting, writing, using mouse. --Have not notice any associated swelling --Denies dry eyes, dry mouth, fevers, sun sensitivity, mouth or nare sores, uveitis, --Has pupuric rash to lower extremities and follows with SHANELLE, denies biopsy --follows with DERM for alopecia - uses minoxidil - no scarring to scalp. 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 External ear normal. NOSE/SINUS:? Airflow through both nares, no nasal discharge, no bleeding THROAT:? Oral mucosa moist, no ulcerations NECK:? No thyromegaly or masses, no adenopathy, trachea midline. HEART:? Regular rhythm, S1-S2 heard, no murmurs, rubs or gallops. LUNG:? Clear to percussion and auscultation EXTREMITIES:? No edema, no calf tenderness, normal peripheral pulses. NEURO:? Oriented and alert x3.? No focal weakness.? Reflexes symmetric.? Gait normal. SKIN:? Scattered purpura and hyperigmentation to lower legs. No objective signs of Raynaud's phenomenon. JOINT EXAM: Cervical Spine:.? Full range of motion without pain; no tenderness. Thoracic Spine:.? No scoliosis.? No tenderness on palpation. Lumbar Spine:.? Alignment normal.? Full range of motion without pain, no tenderness. Chest Wall:.? No tenderness, swelling, increased warmth or erythema. Hands:.? Normal pain-free range of motion without tenderness, swelling, increased warmth or erythema. Able to make a full fist and has a good nursing tech strength. Wrists:.? Normal pain-free range of motion without tenderness, swelling, increased warmth or erythema. Elbows:. Normal pain-free range of motion without tenderness, swelling, increased warmth or erythema. Shoulders:.?? Full range of motion without pain. No tenderness, weakness, swelling, increased warmth or erythema. Hips:.? Full range of motion without pain. Hip bursa:.? No tenderness. Knees:.?? Normal pain-free range of motion without tenderness, swelling, increased warmth or erythema.? There is no effusion or crepitation Ankles:.? Normal pain-free range of motion without tenderness, swelling, increased warmth or erythema. Feet:.? Normal pain-free range of motion without tenderness, swelling, increased warmth or erythema. Tender points:? No tenderness to digital palpation at the occiput, trapezius, second rib, lateral epicondyle, knees, greater trochanter and gluteal area bilaterally. Assessment & Plan Assessment & Plan (1) Bilateral hand pain: Code(s): M79.641 - Pain in right hand; M79.642 - Pain in left hand Category: Medical (2) Right hand tendonitis: Code(s): M77.8 - Other enthesopathies, not elsewhere classified Category: Medical (3) Pigmented purpuric dermatosis: Code(s): L81.7 - Pigmented purpuric dermatosis Category: Medical Plan #Right Hand Pain/Tendonitis: The patient is here to assess whether or not there is an underlying pathology to his hand and wrist pain. On initial review of history, physical examination, and available diagnostics, it does not appear that at this time that the patient has an underlying connective tissue or inflammatory process. However, given the purpuric rash to his lower extremities, I think we should evaluate. I will order Rheumatology panel. I will also order imaging of the hand and elbow. #Pigmented Purpuric: Scattered purpuric rash on his lower legs - he is following with derm. Patient reports that he is following with DERM and the resolved with topical corticosteroids. He denies biopsy. When the rashes are resolve they leave hyperpigmentation. These are mainly to his lower legs. He is also seeing DERM for alopecia over 4 years now and uses minoxidil. Purpuric rash can be seen in the context of vasculitis which can be cutaneous or systemic. Full Rheum panel to include ANCA will help to determine if this is self-limiting or immune complex mediated . The patient denies bleeding (nose, occult), chest or abdominal pain, skin breakdown. I spent 40 minutes reviewing history, evaluating patient and documenting Orders: Orders GIORGI Reflex Titer and Pattern 11/08/23 M77.8 - Other enthesopathies, not elsewhere classified, M77.11 - Lateral epicondylitis, right elbow, M79.641 - Pain in right hand, M79.642 - Pain in left hand Anti Extractable Nuclear Ag 11/08/23 M77.8 - Other enthesopathies, not elsewhere classified, M77.11 - Lateral epicondylitis, right elbow, M79.641 - Pain in right hand, M79.642 - Pain in left hand Complement C3 11/08/23 M77.8 - Other enthesopathies, not elsewhere classified, M77.11 - Lateral epicondylitis, right elbow, M79.641 - Pain in right hand, M79.642 - Pain in left hand Complete Blood Count Auto Diff 11/08/23 M77.8 - Other enthesopathies, not elsewhere classified, M77.11 - Lateral epicondylitis, right elbow, M79.641 - Pain in right hand, M79.642 - Pain in left hand C Reactive Protein 11/08/23 M77.8 - Other enthesopathies, not elsewhere cl assified, M77.11 - Lateral epicondylitis, right elbow, M79.641 - Pain in right hand, M79.642 - Pain in left hand Creatine Kinase Total 11/08/23 M77.8 - Other enthesopathies, not elsewhere classified, M77.11 - Lateral epicondylitis, right elbow, M79.641 - Pain in right hand, M79.642 - Pain in left hand Erythrocyte Sedimentation Rate 11/08/23 M77.8 - Other enthesopathies, not elsewhere classified, M77.11 - Lateral epicondylitis, right elbow, M79.641 - Pain in right hand, M79.642 - Pain in left hand Immunoglobulins,IgG IgA IgM 11/08/23 M77.8 - Other enthesopathies, not elsewhere classified, M77.11 - Lateral epicondylitis, right elbow, M79.641 - Pain in right hand, M79.642 - Pain in left hand Protein Electrophoresis, Serum 11/08/23 M77.8 - Other enthesopathies, not elsewhere classified, M77.11 - Lateral epicondylitis, right elbow, M79.641 - Pain in right hand, M79.642 - Pain in left hand Sjogren's Antibodies 11/08/23 M77.8 - Other enthesopathies, not elsewhere classified, M77.11 - Lateral epicondylitis, right elbow, M79.641 - Pain in right hand, M79.642 - Pain in left hand Uric Acid 11/08/23 M77.8 - Other enthesopathies, not elsewhere classified, M77.11 - Lateral epicondylitis, right elbow, M79.641 - Pain in right hand, M7 9.642 - Pain in left hand Immunofixation Pnl, Serum 11/08/23 M77.8 - Other enthesopathies, not elsewhere classified, M77.11 - Lateral epicondylitis, right elbow, M79.641 - Pain in right hand, M79.642 - Pain in left hand Rheumatoid Factor 11/08/23 M77.8 - Other enthesopathies, not elsewhere classified, M77.11 - Lateral epicondylitis, right elbow, M79.641 - Pain in right hand, M79.642 - Pain in left hand XR hand LT 2V 11/08/23 M79.641 - Pain in right hand, M79.642 - Pain in left hand, M25.521 - Pain in right elbow, M25.522 - Pain in left elbow XR elbow LT 2V 11/08/23 M79.641 - Pain in right hand, M79.642 - Pain in left hand, M25.521 - Pain in right elbow, M25.522 - Pain in left elbow Anti-Centromere B Antibodies 11/08/23 M77.8 - Other enthesopathies, not elsewhere classified, M77.11 - Lateral epicondylitis, right elbow, M79.641 - Pain in right hand, M79.642 - Pain in left hand Anti DNA DS Antibody 11/08/23 M77.8 - Other enthesopathies, not elsewhere classified, M77.11 - Lateral epicondylitis, right elbow, M79.641 - Pain in right hand, M79.642 - Pain in left hand ANCA Vasculitides 11/08/23 M77.8 - Other enthesopathies, not elsewhere classified, M77.11 - Lateral epicondylitis, right elbow, M79.641 - Pain in right hand, M79.642 - Pain in left hand Complement C4 11/08/23 M77.8 - Other enthesopathies, not elsewhere classified, M77.11 - Lateral epicondylitis, right elbow, M79.641 - Pain in right hand, M79.642 - Pain in left hand Comprehensive Met. Panel 11/08/23 M77.8 - Other enthesopathies, not elsewhere classified, M77.11 - Lateral epicondylitis, right elbow, M79.641 - Pain in right hand, M79.642 - Pain in left hand Scleroderma 70 Antibody 11/08/23 M77.8 - Other enthesopathies, not elsewhere classified, M77.11 - Lateral epicondylitis, right elbow, M79.641 - Pain in right hand, M79.642 - Pain in left hand Cyclic Citrullinated Peptide 11/08/23 M77.8 - Other enthesopathies, not e lsewhere classified, M77.11 - Lateral epicondylitis, right elbow, M79.641 - Pain in right hand, M79.642 - Pain in left hand XR hand RT 2V 11/08/23 M79.641 - Pain in right hand, M79.642 - Pain in left hand, M25.521 - Pain in right elbow, M25.522 - Pain in left elbow Coding Level of Care Code New Pt Level 5 (42577) Diagnoses Bilateral hand pain M79.641; M79.642 Right hand tendonitis M77.8 Pigmented purpuric dermatosis L81.7
[2023-11-08 14:20] VITALS: BP 96/60; PULSE 62; O2SAT 98; BMI 21.8
== END 2023-11-08 15:05 | disposition home or self-care (01) ==
PROVIDERS: PCP Internal Medicine; Visit Provider Nurse Practitioner Family
DX: M79.641 Pain in right hand (principal); M79.642 Pain in left hand; M77.8 Other enthesopathies, not elsewhere classified; L81.7 Pigmented purpuric dermatosis
CPT/HCPCS: 99204

== ENCOUNTER 2023-12-14 08:00 | Outpatient (RCR) | payer OTHER, SELFPAY ==
--- NOTE | 2023-11-07 17:00 | MHC.OT.EP ---
[address] [phone] Occupational Therapy Plan of Care Patient Name: Miguel A Gray Date of Evaluation: 11/07/23 Diagnosis: Right lateral epicondylitis Cubital tunnel syndrome on the right Pain Location: 5/10 bilateral forearms, wrists and hands . 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 He is now limiting gym work outs. EMG slows mild bilateral ulnar nerve compression at the cubital tunnel. Symptoms included medial elbow pain and dorsal radial wrist pain on the right greater than the left. He also reports radial hand paresthesia and ulnar hand. 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 and mild ulnar neuropathy on the right > left Miguel A will benefit from OT to improve symptoms with elbow protection techniques , ther ex and modalities for pain Frequency and Duration: The patient will be seen 2 x wk x 4 wks Short Term Goals: Demo indep with HEP and elbow protection at night Demo awareness of elbow protection with daily activities Decrease pain to occasional 3/10 with elbow protection as needed Modify gym work outs for elbow protection [employer] Hospitalist Goals: Same as above Treatment Plan: Therapeutic Exercise Therapeutic Activity Home Exercise Program Splinting Patient Education ADL Training Ultrasound Iontophoresis Soft Tissue Mobilization Kinesiotaping Electronically Signed By: Sarah Ugalde OT CHT CLT Please Sign and return to therapist. Thank you once again for your referral.
--- NOTE | 2023-11-23 10:15 | MHC.OT.OP ---
[address] [phone] F: [phone] Occupational Therapy Progress Note Patient Name: Miguel A Gray Diagnosis: Right lateral epicondylitis Cubital tunnel syndrome on the right Date of Surgery: Date of Evaluation: 11/07/23 Treatments to Date: 6 Cancellations to Date: No Shows to Date: Subjective: Yesterday was really bad early in the morning. I don't know why> Pain Score: 4 Pain Location: Right elbow > left, right wrist Objective Measures: Status: Not Progressing Assessment: Miguel A reports slight improvement in proximal forearm pain, ulnar nerve sx and CTS type sx with limiting gym activity and implementing work station ergonomics including Pt attempting to change his keyboard technique from using radial digits exclusively to a standard typing technique. Rx request for night Griselda Stone elbow flexion block for night wear requested last week 11/16/23 He is implementing elbow protection techniques for lateral epicondylitis and for cubital tunnel syndrome bilaterally. Miguel A is highly motivated and independent with his HEP and self management techniques Objectively right wrist crepetis noted with wrist ROM and improving right medial elbow edema noted. Elbow/proximal forearm pain unchanged. Miguel A is not available to OT next week due to travel for work. He will follow up with Dr Le when he returns and is scheduled for OT after. 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
== END 2024-01-30 08:56 | disposition home or self-care (01) ==
LOC: HO.OT 08:00
PROVIDERS: PCP Internal Medicine; Visit Provider Orthopaedic Surgery
DX: G56.21 Lesion of ulnar nerve, right upper limb (principal); M77.11 Lateral epicondylitis, right elbow
CPT/HCPCS: 97033; 97035; 97110; 97112; 97140; 97166; 97530

== ENCOUNTER 2024-01-03 15:04 | Outpatient (AMB) | payer OTHER, BC, SELFPAY ==
--- NOTE | 2024-01-03 15:11 | A.OFFVIS_ITS ---
Intake Visit Reasons: OV-B/L CTS Intake Note: Miguel A is a 28 year old right hand dominant male who presents today for a follow up visit of bilateral hand and wrist pain/numbness & tingling. He explains that the right wrist/hand is more painful than the left. Pain is felt at the dorsal aspect of the wrist and lateral aspect of the elbow, and numbness and tingling in all of his finger tips including the thumb. He explains this numbness as predominantly affecting the 1st-3rd digits when typing or texting, but is felt in 4th& 5th digits when waking up in thenight along with some other movements like driving. Right Lateral epicondylitis s/p O.T - He explains that he is unable to identify if this has been helpful or not, occasionally he felt some relief but overall he feels no changes in his current symptoms. He was instructed to try sleeping with his arms extended/limit curling them into the body, which has helped alleviate some of the numbness in the 4th & 5th digits Allergies No Known Allergies Allergy (Verified 11/08/23 14:12) HPI HPI OV-B/L CTS: Details: Miguel A is a 28 year old right hand dominant man who returns to discuss his bilateral hand numbness & right arm tendinitis He continues to complain of numbness in all his fingers bilaterally, R>L. Symptoms intermittent, but daily, worse with activities such as typing. 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 He has been attending OT hand therapy for his right hand tendinitis & tennis elbow. He says this gave him some relief, but he is unsure how much. He continues to have pain with gripping or lifting activities. He says he sleeps on his side at night, and he will wake up with one of his arms numb from the elbow to his fingers. He has been trying to modify his sleeping positions & habits and feels he has somewhat improved his overnight symptoms. He does still have occasional numbness when he wakes up in the middle of the night. He finds some relief wearing wrist braces at work. 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 He does a lot of typing, spending a lot of time on the computer each day, which he feels has been causing the problems. He has not considered using dictation programs to help him with his work, as they have not been allowed in classified areas. However, his job is changing in he might be able to consider such a change. 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 Cognitive needs: No Hearing needs: No Vision needs: No Physical Exam Extrem Other: Evaluation of Bilateral Upper Extremity: The patient is alert, oriented, and in no acute distress Neuro: Median, Ulnar, Radial nerves motor and sensory intact and sensation is normal to the tips of all digits today in clinic No thenar or intrinsic wasting Good APB muscle belly firing and good finger cross Vascular: Cap refill brisk ROM: He can make a fist and extend all his digits No locking or catching Mild Tenderness over the right dorsal proximal aspect of the forearm, perhaps 3- 4 cm distal to the lateral epicondyle . Mild Tenderness over the flexor origin just distal to the medial epicondyle Tender over the dorsal aspect of the right distal forearm, in line with the 4th dorsal compartment tendons No pain with resisted extension of any of the fingers. No pain with resisted right wrist extension. Nerve Conduction study: IMPRESSION: Mild bilateral ulnar neuropathy across cubital tunnel. No evidence of median neuropathy or radiculopathy. Sergio Brar MD 07/13/2023 Assessment & Plan Assessment & Plan (1) Cubital tunnel syndrome on right: Code(s): G56.21 - Lesion of ulnar nerve, right upper limb Category: Medical (2) Cubital tunnel syndrome on left: Code(s): G56.22 - Lesion of ulnar nerve, left upper limb Category: Medical (3) Numbness and tingling in both hands: Code(s): R20.0 - Anesthesia of skin; R20.2 - Paresthesia of skin Category: Medical (4) Right lateral epicondylitis: Code(s): M77.11 - Lateral epicondylitis, right elbow Category: Medical (5) Right hand tendonitis: Code(s): M77.8 - Other enthesopathies, not elsewhere classified Category: Medical Plan Assessment & Plan: 1. Right cubital tunnel syndrome, mild Symptoms intermittent, but daily, worse at night or with activity 2. Left cubital tunnel syndrome, mild Symptoms intermittent, but daily, worse at night or with activity He feels like the numbness and tingling in the ulnar nerve distributions bilaterally is somewhat improved with activity modification and being careful with avoiding prolonged elbow flexion positions. 3. Bilateral hand numbness In the median nerve distribution, particularly the right index & middle fingers Symptoms intermittent, but daily, worse with activity Etiology unclear, NCS from 07/13/23 showed no evidence of carpal tunnel syndrome I ordered a repeat NCS to be done with Dr. Zhao to assess for peripheral nerve compression. This should be done after 01/12/24. I discussed the use of TTS programs with him, such as Dragon, to be used when at work. He will continue with his OT exercises at home He will follow up when completed for review. 4. Right Lateral epicondylitis. 5. Right 4th dorsal compartment tendinitis involving the finger extensors This was somewhat better today I educated him about these several conditions He will continue to work on his at-home exercises He will continue to work on modifying his activities, repetitive motions, and positioning If his symptoms continue we may consider a possible steroid injection in the future. Scribed for Teodora Le MD by Dmitriy Mosley, medical facilities section director, on 01/03/24 at 3:50 PM, EST. Orders: Orders NE nerve conduction velocity Today R20.0 - Anesthesia of skin, R20.2 - Paresthesia of skin Coding Level of Care Code Est Pt Level 4 (38301) Diagnoses Cubital tunnel syndrome on right G56.21 Cubital tunnel syndrome on left G56.22 Numbness and tingling in both hands R20.0; R20.2 Right lateral epicondylitis M77.11 Right hand tendonitis M77.8
== END 2024-01-03 16:05 | disposition home or self-care (01) ==
PROVIDERS: PCP Internal Medicine; Visit Provider Orthopaedic Surgery
DX: G56.23 Lesion of ulnar nerve, bilateral upper limbs (principal); R20.0 Anesthesia of skin; R20.2 Paresthesia of skin; M77.11 Lateral epicondylitis, right elbow; M77.8 Other enthesopathies, not elsewhere classified
CPT/HCPCS: 99214

== ENCOUNTER → 2024-01-03 15:04 | Outpatient (BNVA) | payer OTHER, BC, SELFPAY | PROVIDERS: PCP Internal Medicine; Visit Provider Orthopaedic Surgery | DX: G56.23 Lesion of ulnar nerve, bilateral upper limbs (principal); R20.0 Anesthesia of skin; R20.2 Paresthesia of skin; M77.11 Lateral epicondylitis, right elbow; M77.8 Other enthesopathies, not elsewhere classified | CPT/HCPCS: 99212 ==

== ENCOUNTER 2024-02-28 14:35 | Outpatient (REF) | payer OTHER, BC, SELFPAY ==
--- NOTE | 2024-02-28 14:38 | EMG_ITS ---
Chief complaint: Finger numbness Reviewed NCS/EMG done by Dr. Brar 07/13/23 which reported bilateral ulnar neuropathy at the elbow, with slowing of conduction velocity across the elbows bilateral. No evidence of median neuropathy reported. Reason for referral: Evaluate for Carpal Tunnel Syndrome, repeat study Referred by: Dr. Le Procedure done: Bilateral upper extremities NCS/EMG Precautions and/or limitations: None The limb temperature was monitored continuously and remained between 32-36 degrees C during the performance of the NCS. Nerve Conduction Studies Anti Sensory Summary Table ?Stim Site NR Onset (ms) Norm Onset (ms) Peak (ms) Norm Peak (ms) O-P Amp (?V) Norm O-P Amp Site1 Site2 Delta-0 (ms) Dist (cm) Yosef (m/s) Norm Yosef (m/s) Left Median Anti Sensory (2nd Digit) Wrist ? 2.3 2.9 <3.6 38.6 >10 Wrist 2nd Digit 2.3 14.0 61 Right Median Anti Sensory (2nd Digit) Wrist ? 2.2 2.7 <3.6 47.7 >10 Wrist 2nd Digit 2.2 14.0 64 Left Ulnar Anti Sensory (5th Digit) Wrist ? 2.5 3.0 <3.7 21.5 >15.0 Wrist 5th Digit 2.5 14.0 56 Right Ulnar Anti Sensory (5th Digit) Wrist ? 2.3 2.8 <3.7 18.7 >15.0 Wrist 5th Digit 2.3 14.0 61 Motor Summary Table ?Stim Site NR Onset (ms) Norm Onset (ms) O-P Amp (mV) Norm O-P Amp iAmp (mV) Amp (1st) (%) Site1 Site2 Delta-0 (ms) Dist (cm) Yosef (m/s) Norm Yosef (m/s) Left Median Motor (Abd Poll Brev) Wrist ? 2.8 <3.9 13.3 >4.5 15.4 100.0 Elbow Wrist 4.3 25.0 58 >45 Elbow ? 7.1 13.6 15.9 102.3 Right Median Motor (Abd Poll Brev) Wrist ? 2.7 <3.9 15.7 >4.5 17.7 100.0 Elbow Wrist 4.1 25.0 61 >45 Elbow ? 6.8 14.9 17.0 94.9 Left Ulnar Motor (Abd Dig Minimi) Wrist ? 2.3 <3.0 7.4 >5 8.9 100.0 B Elbow Wrist 3.6 21.0 58 >45 B Elbow ? 5.9 7.5 8.9 101.4 A Elbow B Elbow 1.7 10.0 59 >45 A Elbow ? 7.6 7.4 8.9 100.0 Right Ulnar Motor (Abd Dig Minimi) Wrist ? 2.8 <3.0 7.2 >5 9.5 100.0 B Elbow Wrist 3.7 21.5 58 >45 B Elbow ? 6.5 6.9 9.4 95.8 A Elbow B Elbow 1.2 10.0 83 >45 A Elbow ? 7.7 6.7 9.4 93.1 Right Ulnar Motor (FDI) Wrist ? 3.0 <3.0 11.7 >5 14.9 100.0 B Elbow Wrist 3.8 22.0 58 >45 B Elbow ? 6.8 11.6 14.7 99.1 A Elbow B Elbow 1.4 10.0 71 >45 A Elbow ? 8.2 11.8 14.8 100.9 Comparison Summary Table ?Stim Site NR Peak (ms) Norm Peak (ms) P-T Amp (?V) Site1 Site2 Delta-P (ms) Norm Delta (ms) Right Median/Radial Dig I Comparison (Digit 1 - 10cm) Median ? 2.2 <2.9 69.1 Median Radial 0.3 Radial ? 2.5 <2.8 17.6 EMG ?Side Muscle Nerve Root Ins Act Fibs Psw Amp Dur Poly Recrt Int Pat Comment Right 1stDorInt Ulnar C8-T1 Nml Nml Nml Nml Nml 0 Nml Complete Right FlexCarRad Median C6-7 Nml Nml Nml Nml Nml 0 Nml Complete Right Biceps Musculocut C5-6 Nml Nml Nml Nml Nml 0 Nml Complete Right Triceps Radial C6-7-8 Nml Nml Nml Nml Nml 0 Nml Complete Right Deltoid Axillary C5-6 Nml Nml Nml Nml Nml 0 Nml Complete Left 1stDorInt Ulnar C8-T1 Nml Nml Nml Nml Nml 0 Nml Complete Left FlexCarRad Median C6-7 Nml Nml Nml Nml Nml 0 Nml Complete Left Biceps Musculocut C5-6 Nml Nml Nml Nml Nml 0 Nml Complete Left Triceps Radial C6-7-8 Nml Nml Nml Nml Nml 0 Nml Complete Left Deltoid Axillary C5-6 Nml Nml Nml Nml Nml 0 Nml Complete FINDINGS: All motor and sensory nerves tested showed normal latencies, amplitudes and conduction velocities. Ulnar motor studies done with both recording at ADM and FDI muscles. Ulnar motor NCS was performed with moderate elbow flexion between 70-90 degrees, with across-elbow distance of 10 cm. Concentric needle EMG was performed in selected muscles of the bilateral upper extremities. Study did not reveal signs of electric abnormalities as shown in the table above. IMPRESSION: 1. This is a normal study. 2. There is no electrodiagnostic evidence for median neuropathy, ulnar neuropathy, brachial plexopathy, or cervical radiculopathy. CLINICAL COMMENT: No evidence of conduction velocity slowing or conduction block across the elbow seen on ulnar studies done today. No evidence of median neuropathy seen on study today. Thank you for your kind referral. Terese Boyer MD, MARIYA Board Certified, [place] Board [employer] and [employer] (ABPMR) Board Certified, [place] Board of Electrodiagnostic Medicine (ABEM) CODIN [id number] x 2 MTDD
== END 2024-02-28 14:36 | disposition home or self-care (01) ==
LOC: HO.NEURO 14:35
PROVIDERS: PCP Internal Medicine; Visit Provider Orthopaedic Surgery
DX: R20.0 Anesthesia of skin (principal); R20.2 Paresthesia of skin
CPT/HCPCS: 95886; 95911

== ENCOUNTER → 2024-02-28 14:38 | Outpatient (BNV) | payer OTHER, BC, SELFPAY | PROVIDERS: PCP Internal Medicine; Visit Provider Physical Medicine & Rehabilitation | DX: R20.0 Anesthesia of skin (principal); R20.2 Paresthesia of skin | CPT/HCPCS: 95886; 95911 ==

== ENCOUNTER 2024-08-14 09:08 | Outpatient (AMB) | payer BC, SELFPAY ==
--- NOTE | 2024-08-14 09:14 | MHC.PC.OV ---
Vital Signs 08/14/24 09:15 Height 6 ft 1 in Weight 166 lb 6 oz BMI 21.9 BP 100/62 Blood Pressure Location Lt brachial Position Sitting Pulse 56 Pulse Source Pulse Oximeter Temp 97.1 F Temp Source Skin Pulse Oximetry (%) 96 Oxygen Delivery Method Room Air Intake Visit Reasons: Annual pe Intake Note: Patient is here today for a physical. Complaint of back pain. Automatic Head Sawyer Required: No Leasing Coordinator: Not Required per policy Accompanied by: Self / Same As Patient Allergies No Known Allergies Allergy (Verified 08/14/24 09:15) Medication List - Last Reconciled 08/14/24 by Eric Bobby MD finasteride 1 mg PO DAILY minoxidil 2.5 mg PO BID tretinoin-benzoyl peroxide 0.1-3 % (Twyneo) 1 appl topical BEDTIME Tobacco use date assessed: 08/14/24 Dental Screening Dental Screen Date: 08/14/24 Did you have a dental visit in the last 12 months?: Yes Did you have a dental problem in the last 6 months where you did not have access to dental care?: No Was dental information given to patient?: Patient has dentist HPI Annual pe HPI Details alopecia on rx; otherwise healthy [facility] Medical History (Updated 12/03/23 @ 21:31 by LESLIE Jean Baptiste) Pigmented purpuric dermatosis Bilateral elbow joint pain Surgical History History of excision of pilonidal cyst History of wisdom tooth extraction Family History Father Alive and well Mother Alive and well Social History Housing: House Alcohol intake: current Alcohol intake frequency: a few times a week Patient Tobacco Use Status: Never used Tobacco Tobacco use type: Cigarette e-Cigarette/Vaping Use: Never Used Second Hand Smoke Exposure: No service: No Current occupational status: employed 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 1. Little interest or pleasure in doing things: not at all 2. Feeling down, depressed, or hopeless: not at all 3. Trouble falling or staying asleep, or sleeping too much: not at all 4. Feeling tired or having little energy: not at all 5. Poor appetite or overeating: not at all 6. Feeling bad about yourself - or that you are a failure or have let yourself or your family down: several days 7. Trouble concentrating on things, such as reading the newspaper or watching television: not at all 8. Moving or speaking so slowly that other people could have noticed. Or the opposite - being so fidgety or restless that you have been moving around a lot more than usual: not at all 9. Thoughts that you would be better off or of hurting yourself in some way: not at all Total score: 1 Depression Screening Interpretation: Positive Depression Screening Done: Yes Source: Developed by Drs. Alessandro Encinas, Soniya Bills, Evangelist Tatum and colleagues, with an educational nuria from [employer]. Thrive Questionnaire Date Thrive assessed: 08/14/24 I am a: Patient What is your living situation today?: I have a steady place to live Within the past 12 months, did the food you bought not last and you didn't have the money to get more?: Never true Within the past 12 months, did you worry whether your food would run out before you got money to buy more?: Never true Do you have trouble paying for medicines?: No Do you have trouble getting transportation to medical appointments?: No Do you have trouble paying your heating and electricity bill?: No Do you have trouble taking care of your child, family member or friend?: No Do you have trouble with day-to-day activities such as bathing, preparing meals, shopping, managing finances, etc.?: No Are you currently unemployed and looking for a job?: No Are you interested in more education?: No Please select the resources that you would like help with: None Currently or been in a relationship where the following occur: No concerns reported THRIVE Score: 0 AUDIT C Alcohol Use Questionnaire (AUDIT-C) 1. How often do you have a drink containing alcohol?: 2-4 times a month 2. How many drinks containing alcohol do you have on a typical day when you are drinking?: 3 or 4 3. How often do you have six or more drinks on one occasion?: Monthly Total Score: 5 ERVIN-7 AMB Questionnaire ERVIN-7 Date ERVIN - 7 assessed: 08/14/24 Feeling nervous, anxious, or on edge: 1 = Several days Not being able to stop or control worryin = Not at all Worrying too much about different things: 0 = Not at all Trouble relaxin = Not at all Being so restless that it is hard to sit still: 0 = Not at all Becoming easily annoyed or irritable: 1 = Several days Feeling afraid as if something awful might happen: 0 = Not at all Total ERVIN-7 score (0-4 normal; 5-9 mild; 10-14 moderate; 15-21 severe): 2 Source: Developed by Drs. Alessandro Encinas, Soniya Bills, Evangelist Tatum and colleagues, with an educational nuria from [employer]. Review of Systems Const Denies chills, Denies fatigue, Denies headache(s) and Denies weight loss Eyes Denies change in vision, Denies diplopia and Denies eye pain ENT Denies vertigo, Denies dizziness, Denies headache(s) and Denies nasal discharge Card Denies chest pain, Denies rapid heart rate and Denies dyspnea on exertion Resp Denies chest congestion, Denies cough, Denies pain with cough and Denies dyspnea on exertion GI Denies abdominal pain, Denies hematochezia and Denies change in bowel habits Musc Denies myalgias, Denies arthralgias and Denies joint swelling Skin/Breast Denies lesions and Denies unusual bruising Neuro Denies vertigo, Denies dizziness, Denies headache(s) and Denies focal weakness Endo Denies fatigue Physical exam (Primary Care) Vital Signs: Last Vital Signs Temp 97.1 F 08/14/24 09:15 Pulse 56 08/14/24 09:15 BP 100/62 08/14/24 09:15 Pulse Ox 96 08/14/24 09:15 Oxygen Delivery Method Room Air 08/14/24 09:15 BMI result Body Mass Index 21.9 Tobacco/Smoking Status: Tobacco use Status Tobacco use date assessed 08/14/24 08/14/24 09:20 Patient Tobacco Use Status Never used Tobacco 08/14/24 09:20 Tobacco use type Cigarette 08/14/24 09:20 e-Cigarette/Vaping Use Never Used 08/14/24 09:20 PHQ-9: PHQ-9 Score PHQ-9: Total score 1 08/14/24 09:20 Depression Screening Interpretation: Positive Thrive Assessment: Date of Thrive Assessment Date Thrive assessed 08/14/24 08/14/24 09:20 Currently or been in a relationship where the following occur: No concerns reported Const General: cooperative, healthy appearing and no acute distress Orientation/consciousness: oriented to person, oriented to place and oriented to time HENMT Head: Yes normal to inspection, Yes normocephalic and Yes atraumatic Mouth: Normal oral and palatal mucosa present and tongue normal Throat: Yes posterior oropharynx normal and Yes uvula midline Eyes General: appearance normal, both eyes and all related structures Neck Neck: Yes normal visual inspection, Yes full ROM and Yes no lymphadenopathy Thyroid: Thyroid normal Carotids: normal carotid upstroke Chest Chest palpation & inspection: normal inspection of the chest Resp Effort & Inspection: normal respiratory effort and able to speak in complete sentences Auscultation: clear to auscultation bilaterally Cardio Jugular venous distension: no JVD Palpation: normal PMI Rate: regular rate Rhythm: regular rhythm Heart sounds: S1 normal heart sound present and S2 normal heart sound present GI Inspection: Yes normal to inspection Palpation (GI): Soft to palpation and No hepatosplenomegaly present Auscultation: normal bowel sounds General: Yes no CVA tenderness Back/Spine/Pelvis Back: no CVA tenderness Skin General skin exam: no rashes or lesions noted Neuro General: oriented to person, oriented to place and oriented to time Extrem General: Yes normal to inspection and Yes full ROM Coding Level of Care Code Est Pt Prev Care 18-39y(31629) Diagnoses Physical exam, annual Z00.00 Assessment & Plan Assessment & Plan (1) Physical exam, annual: Code(s): Z00.00 - Encounter for general adult medical examination without abnormal findings Category: Medical Plan: stable; do labs Orders: Orders XR lumbar spine 2-3V Today M54.9 - Dorsalgia, unspecified
[2024-08-14 09:15] VITALS: BP 100/62; PULSE 56; TEMP 36.2; O2SAT 96; BMI 21.9
--- OUTSIDE RECORDS SUMMARY | 2024-08-14 09:31 | XMS_ITS | Clinical Summary ---
Author Organization [facility] Address [address] [place] [address] Care Team Providers Care Rip Saw Operator Name Role Phone Eric Bobby MD Primary Care Provider [phone] Allergies No known active allergies Medications Medication Sig Dispensed Refills Start Date End Date Status Finacea 15 % foam APPLY TO FACE ONCE DAILY IN THE MORNING 09/05/2023 Active finasteride (PROPECIA) 1 MG tablet Take 1 tablet (1 mg total) by mouth daily. 10/06/2023 Active ketoconazole (NIZORAL) 2 % shampoo APPLY TO A DRY SCALP LEAVE ON FOR 10 MINUTES THEN WASH OFF 2-3 TIMES WEEKLY. 10/30/2023 Active minoxidil (LONITEN) 2.5 MG tablet Take 1 tablet (2.5 mg total) by mouth 2 (two) times a day. 10/23/2023 Active Twyneo 0.1-3 % Cream APPLY A PEA SIZED AMOUNT NIGHTLY AT BEDTIME 10/05/2023 Active diclofenac (VOLTAREN) 1 % gelIndications:Tenosy novitis, wrist Apply topically 4 (four) times a day. Use dosing card to measure dose. Apply to entire affect area. 100 g 05/02/2024 Active Encounters Date Type Department Care Team Description 06/18/2024 11:15 AM EST [facility] Visit [facility] [address] [place] [phone] Ruth Tanner, TELMA Ulnar neuritis, left (Primary Dx); Ulnar neuritis, right; Tenosynovitis, wrist from Last 3 Months Social History Tobacco Use Types Packs/Day Years Used Date Smoking Tobacco: Never Assessed Sex and Gender Information Value Date Recorded Sex Assigned at Male 05/02/2024 12:44 PM EDT Gender Identity Male 05/02/2024 12:44 PM EDT Sexual Orientation Asexual 05/02/2024 12 :44 PM EDT Last Filed Vital Signs Vital Sign Reading Time Taken Comments Blood Pressure 100/70 11/20/2023 3:24 PM EDT Pulse 72 11/20/2023 3:24 PM EDT Temperature 36.4 ??C (97.5 ??F) 11/20/2023 3:24 PM ED T Respiratory Rate - - Oxygen Saturation 97% 11/20/2023 3:24 PM EDT Inhaled Oxygen Concentration - - Weight - - Height - - Body Mass Index - - Plan of Treatment Upcoming Encounters Date Type Department Care Team (Late st Contact Info) Description 08/15/2024 8:30 AM EST [facility] [address] [place] [id number] Alvaro Castro MD [address] [place] [address] [address] [place] [address] Health Maintenance Due Date Last Done Comments Hepatitis C Virus Screening 1993 HIV Screening 2006 DTaP/Tdap/Td Vaccines (1 - Tdap) 2012 Hepatitis B Vaccines (1 of 3 - 19+ 3-dose series) 2012 Influenza Vaccine 02/22/2024 COVID-19 Vaccine (3 - 2023-2 5 season) 2024 06/29/2021, 11/01/2020 HPV Vaccines Aged Out No longer eligi ble based on patient's age to complete this topic Pneumococcal Vaccine: Pediatric (0-5 Years) and At-Risk Patients (6 to 49 Years) Aged Out No longer eligible b ased on patient's age to complete this topic Care Teams Rip Saw Operator Relationship Specialty Start Date End Date Eric Bobby MD [address] [place], [place] [phone] PCP - General 05/02/24
== END 2024-08-14 09:30 | disposition home or self-care (01) ==
PROVIDERS: PCP Internal Medicine; Visit Provider Internal Medicine
DX: Z00.00 Encounter for general adult medical examination without abnormal findings (principal)

== ENCOUNTER 2024-08-14 09:08 | Outpatient (REF) | payer BC, SELFPAY ==
[2024-08-14 09:49] LABS: MANUAL DIFF FLAG NO
--- OUTSIDE RECORDS SUMMARY | 2024-08-14 10:15 | XMS_ITS | Clinical Summary ---
Author Organization [facility] Address [address] [place] [address] Care Team Providers Care Gender Studies Professor Name Role Phone Eric Bobby MD Primary Care Provider [phone] Allergies No known active allergies Medications Medication [...] AM EST [facility] Visit [facility] [address] [place] [phone] Ruth Tanner, TELMA Ulnar neuritis, left [...] AM EST Office Visit [facility] [address] [place] [phone] Alvaro Castro MD [address] [place] [address] [address] [place] [address] Health Maintenance Due Date Last Done Comments [...] age to complete this topic Care Teams Gender Studies Professor Relationship Specialty Start Date End Date Eric Bobby MD [address] [place], [place] [phone] PCP - General 05/02/24
--- OUTSIDE RECORDS SUMMARY | 2024-08-14 10:15 | XMS_ITS ---
Author Name [facility] Organization Unknown History of Medication Use Medication Directions Dispensed Refills Start Date End Date Stat us minoxidil (LONITEN) 2.5 MG tablet Take 1 tablet (2.5 mg total) by mouth 2 (two) times a day. 10/23/2023 active diclofenac (VOLTAREN) 1 % gel Apply topically 4 (four) times a day. Use dosing card to measure dose. Apply to entire affect area. 05/02/2024 active Problems Problem Status Onset Date Problem Type Date of Resoluti on Source Tenosynovitis, wrist active EncounterDiagnosisAct [facility] Ulnar neuritis, right active EncounterDiagnosisAct [facility] Ulnar neuritis, left active EncounterDiagnosisAct [facility]
[2024-08-14 11:06] LABS: Basophils Percent Auto 0.8 % (0-2); Eosinophils Absolute Auto 0.1 X10*3/uL (0.0-0.4); Eosinophils Percent Auto 3.4 % (0-4); Hematocrit 44.4 % (42.0-52.0); Hemoglobin 15.8 g/dl (14.0-18.0); Imm Gran Abs Auto 0.01 X10*3/uL (0.00-0.03); Imm Gran Pct Auto 0.3 % (0.0-0.4); Lymphocytes Absolute Auto 1.5 X10*3/uL (1.2-4.9); Lymphocytes Percent Auto 38.3 % (20-40); Mean Corpuscular HGB Conc 35.6 g/dl (31.0-36.0); Mean Corpuscular Hemoglobin 31.7 pg (27.0-33.0); Mean Platelet Volume 9.5 fL (9.4-12.4); Monocytes Absolute Auto 0.5 X10*3/uL (0.1-1.2); Monocytes Percent Auto 12.7 % (2-11); Neutrophils Absolute Auto 1.7 x10*3/uL (2.0-8.3); Neutrophils Percent Auto 44.5 % (45-73); Platelet Count 217 X10*3/uL (160-400); Red Blood Count 4.99 X10*6/uL (4.60-5.80); Red Cell Distribution Width 12.3 % (11.0-16.0); White Blood Count 3.9 X10*3/uL (4.8-10.8)
[2024-08-14 11:37] LABS: Alanine Aminotransferase 24 U/L (0-40); Albumin Level 4.3 g/dL (3.5-5.0); Alkaline Phosphatase 48 U/L (39-117); Anion Gap 7 (12-20); Aspartate Amino Transferase 22 U/L (5-37); Bilirubin Total 1.2 mg/dL (0.0-1.0); Blood Urea Nitrogen 11 mg/dL (9-16); Calcium 9.6 mg/dL (8.4-10.2); Carbon Dioxide 30 mmol/L (22-29); Chloride 107 mmol/L (96-108); Cholesterol 154 mg/dL (<200); Estimated Glomerular Filt Rate > 60; Glucose Fasting 87 mg/dL (60-99); HDL Cholesterol 61 mg/dL (>40); LDL Cholesterol Calculated 85 mg/dL (<100); Potassium 4.8 mmol/L (3.3-5.1); Sodium 139 mmol/L (135-145); Total Protein 6.9 g/dL (6.5-8.0); Triglycerides 44 mg/dL (<150)
== END 2024-08-14 09:09 | disposition home or self-care (01) ==
LOC: HO.LAB 09:08
PROVIDERS: PCP Internal Medicine; Visit Provider Internal Medicine
DX: Z13.220 Encounter for screening for lipoid disorders (principal); Z13.9 Encounter for screening, unspecified; Z13.0 Encounter for screening for diseases of the blood and blood-forming organs and certain disorders involving the immune mechanism
CPT/HCPCS: 36415; 80053; 80061; 85025

== ENCOUNTER 2024-08-24 09:16 | Outpatient (REF) | payer BC, SELFPAY ==
--- NOTE | ~2024-08-24 | XR_ITS ---
CLINICAL HISTORY: M54.9 - Dorsalgia, unspecified 3 views lumbar spine Comparison: None Findings: Slight leftward curvature of the lumbar spine. No acute fractures or dislocation. No significant degenerative change. IMPRESSION: Slight leftward lumbar curvature. No significant degenerative change. This document has been electronically signed by: Claribel Streeter MD on 08/27/2024 09:18:08
--- OUTSIDE RECORDS SUMMARY | 2024-08-24 09:19 | XMS_ITS | Clinical Summary ---
Author Organization [facility] Address [address] [place] [address] Care Team Providers Care Roving Hauler Name Role Phone Eric Bobby MD Primary Care Provider [phone] Allergies No known active allergies Medications Medication [...] Encounters Date Type Department Care Team Description 08/15/2024 8:30 AM EST Office Visit [facility] [address] [place] [phone] Alvaro Castro MD Ulnar neuritis, right (Primary Dx); Ulnar neuritis, left; Tenosynovitis, wrist 06/18/2024 11:15 AM EST Office Visit [facility] [address] [place] [phone] Ruth Tanner, PAEvonneC Ulnar neuritis, left (Primary Dx); Ulnar neuritis, [...] Care Team (Late st Contact Info) Description 11/14/2024 8:00 AM EDT [facility] [address] [place] [address] Alvaro Castro MD [address] [place] [address] [place] [phone] Health Maintenance Due Date Last Done Comments [...] age to complete this topic Care Teams Roving Hauler Relationship Specialty Start Date End Date Eric Bobby MD [address] [place] [address] PCP - General 05/02/24
--- OUTSIDE RECORDS SUMMARY | 2024-08-24 09:19 | XMS_ITS | Encounter Summary ---
Author Organization [facility] Address [address] [place] [address] Care Team Providers Care Labor/Excavator Name Role Phone Eric Bobby MD Primary Care Provider [phone] Encounter Details Date Type Department Care Team (Late st Contact Info) Description 08/15/2024 8:30 AM [place] [address] Alvaro Castro MD [address] [place] [phone] Ulnar neuritis, right (Primary Dx); Ulnar neuritis, left; Tenosynovitis, wrist Social History Tobacco Use Types Packs/Day Years Used Date Smoking Tobacco: Never Assessed Sex and Gender Information Value Date Recorded Sex Assigned at Male 05/02/2024 12:44 PM EDT Gender Identity Male 05/02/2024 12:44 PM EDT Sexual Orientation Asexual 05/02/2024 12 :44 PM EDT documented as of this encounter Progress Notes * Alvaro Castro MD - 08/15/2024 8:30 AM EST Images from the original note were not included. [address] [facility] [address] [address] Encounter Date: 08/15/2024 Assessment & Plan Ulnar neuritis, right Ulnar neuritis, left Tenosynovitis, wrist is showing slight signs of improvement with regards to his bilateral ulnar neuritis as well as his tenosynovitis. Although his improvement is mild, his nerve function remains excellent with regards to his strength and 2-point discrimination and so my recommendation would be to continue with noninvasive options. We discussed continued modification of activities with regards to his ergonomics to decrease elbow hyperflexion and pressure against the ulnar nerve. We discussed continued exercises for his tenosynovitis as well as nerve gliding exercises. We can attempt to start weaning out of the elbow braces to see how he does with his symptoms at that point. He can remain on full duty. We will set up a follow-up in the next 6 to 8 weeks to assess his progress. History of Present Illness: Miguel A Gray is a 29 y.o. male who presents today for follow-up. We have diagnosed him with bilateral ulnar neuritis. He has been having symptoms for several years and I had seen him as a second opinion. He had an initial nerve test that demonstrated mild bilateral ulnar neuropathy at the cubital tunnel in June 2023 and then a more recent test in February 2024 was normal. We have been treating him conservatively with elbow bracing and nerve gliding exercises and also been treating him for wrist tenosynovitis with topical Voltaren, bracing, and exercises. He returns reporting there has been slight improvement since the last visit but not to a great degree. He has been noticing a bit less tingling during the day in the hand and fingers. He still gets some soreness over the dorsal wrist and forearm. He reports that he did try wearing the elbow brace for quite a while with sleep but was unsure if this really helps. This is in comparison to the right wrist brace which has been very effective to help with the symptoms. He has been trying the Voltaren which has been working well especially when hehas flareups. He still feels like his dexterity is a bit off. He feels like he has less tingling in the digits especially in the median side. He had a couple of episodes where he woke up with the whole left arm feeling numb and tingly. He notes that he is not limiting his activity currently but that significant typing and computer work does seem to make his symptoms worse. Physical Exam On examination currently he has 2-point discrimination that is 4 mm in all digits. He has 5 out of 5 APB and interosseous strength without atrophy. He has negative Tinel's sign and Durkan's compression test at the carpal tunnel. Negative Tinel's sign and elbow flexion compression test at the cubital tunnel. No current tenderness over the dorsal extensors with negative wrist synovitis test and nopain with resisted wrist extension. Visit Orders. 1. Ulnar neuritis, right 2. Ulnar neuritis, left 3. Tenosynovitis, wrist Alvaro Castro MD documented in this encounter Plan of Treatment Upcoming Encounters Date Type Department Care Team (Late st Contact Info) Description 11/14/2024 8:00 AM EDT [facility] Visit [facility] [address] [place] [phone] Alvaro Castro MD [address] [facility] [address] [place] [address] documented as of this encounter Visit Diagnoses Diagnosis Ulnar neuritis, right- Primary Ulnar neuritis, left Tenosynovitis, wrist Other tenosynovitis of hand and wrist documented in this encounter Care Teams Labor/Excavator Relationship Specialty Start Date End Date Eric Bobby MD [address] [place] [address] Drive [address] [place] [address] PCP - General 05/02/24 documented as of this encounter
== END 2024-08-24 09:17 | disposition home or self-care (01) ==
LOC: HO.XRAY 09:16
PROVIDERS: PCP Internal Medicine; Visit Provider Internal Medicine
DX: M54.9 Dorsalgia, unspecified (principal)
CPT/HCPCS: 72100

== ENCOUNTER → 2024-08-24 09:23 | Outpatient (BNV) | payer BC, SELFPAY | PROVIDERS: PCP Internal Medicine; Visit Provider Radiology Diagnostic Radiology | DX: M41.86 Other forms of scoliosis, lumbar region (principal) | CPT/HCPCS: 72100 ==

== ENCOUNTER 2025-05-05 15:51 | Outpatient (AMB) | payer BC, SELFPAY ==
--- OUTSIDE RECORDS SUMMARY | 2025-05-05 15:53 | XMS_ITS | Clinical Summary ---
Author Organization [facility] Address [address] [place] [address] Care Team Providers Care Bead Wrapper Name Role Phone Eric Bobby MD Primary Care Provider [phone] Allergies No known active allergies Medications Finacea 15 % foam APPLY TO FACE ONCE DAILY IN THE MORNING 4 Active finasteride (PROPECIA) 1 MG tablet Take 1 tablet (1 mg total) by mouth daily. 4 Active ketoconazole (NIZORAL) 2 % shampoo APPLY TO A DRY SCALP LEAVE ON FOR 10 MINUTES THEN WASH OFF 2-3 TIMES WEEKLY. 4 Active minoxidil (LONITEN) 2.5 MG tablet Take 1 tablet (2.5 mg total) by mouth 2 (two) times a day. 4 Active Twyneo 0.1-3 % Cream APPLY A PEA SIZED AMOUNT NIGHTLY AT BEDTIME 4 Active diclofenac (VOLTAREN) 1 % gelIndications: Tenosynovitis, wrist Apply topically 4 (four) times a day. Use dosing card to measure dose. Apply to entire affect area. 100 g 4 Active Encounters Date Type Department Care Team Description 02/17/2025 8:00 AM EDT Office [place] [facility] [place] [address] Alvaro Castro MD Lateral epicondylitis of right elbow (Primary Dx); Carpal tunnel syndrome of right wrist; Ulnar neuritis, right; Ulnar neuritis, left; Tenosynovitis, wrist from Last 3 Months Social History Tobacco Use Types Packs/Day Years Used Date Smoking Tobacco: Never Assessed Sex and Gender Information Value Date Recorded Sex Assigned at Male 05/02/2024 12:44 PM EDT Legal Sex Male 3:05 PM EDT Gender Identity Male 05/02/2024 12:44 PM EDT Sexual Orientation Asexual 05/02/2024 12 :44 PM EDT Last Filed Vital Signs Vital Sign Reading Time Taken Comments Blood Pressure 100/70 11/20/2023 3:24 PM EDT Pulse 72 11/20/2023 3:24 PM EDT Temperature 36.4 C (97.5 F) 11/20/2023 3:24 PM EDT Respiratory Rate - - Oxygen Saturation 97% 11/20/2023 3:24 PM EDT Inhaled Oxygen Concentration - - Weight - - Height - - Body Mass Index - - Plan of Treatment Upcoming Encounters Date Type Department Care Team (Late st Contact Info) Description 05/19/2025 8:00 AM EDT [facility] [address] [place] [address] Ruth Tanner PA-C [address] [place] [address] [address] [place] [address] Health Maintenance Due Date Last Done Comments Hepatitis C Virus Screening 1993 HIV Screening 2006 DTaP/Tdap/Td Vaccines (1 - Tdap) 2012 Hepatitis B Vaccines (1 of 3 - 19+ 3-dose series) 2012 Influenza Vaccine 02/21/2025 COVID-19 Vaccine (3 - 2024-2 6 season) 2025 06/29/2021, 11/01/2020 HPV Vaccines (No Doses Required) Completed Pneumococcal Vaccine: Pediatric (0-5 Years) and At-Risk Patients (6 to 49 Years) Aged Out No longer eligible b ased on patient's age to complete this topic Insurance [employer] Care Teams Bead Wrapper Relationship Specialty Start Date End Date Eric Bobby MD [address] [place] [id number] PCP - General 05/02/24
--- OUTSIDE RECORDS SUMMARY | 2025-05-05 15:53 | XMS_ITS ---
Author Name [facility] Organization Unknown History of Medication Use Medication Directions Dispensed Refills Start Date End Date Stat us diclofenac (VOLTAREN) 1 % gel Apply topically 4 (four) times a day. Use dosing card to measure dose. Apply to entire affect area. 05/02/2024 active ketoconazole (NIZORAL) 2 % shampoo APPLY TO A DRY SCALP LEAVE ON FOR 10 MINUTES THEN WASH OFF 2-3 TIMES WEEKLY. 10/30/2023 active minoxidil (LONITEN) 2.5 MG tablet Take 1 tablet (2.5 mg total) by mouth 2 (two) times a day. 10/23/2023 active finasteride (PROPECIA) 1 MG tablet Take 1 tablet (1 mg total) by mouth daily. 10/06/2023 active Twyneo 0.1-3 % Cream APPLY A PEA SIZED AMOUNT NIGHTLY AT BEDTIME 10/05/2023 active Finacea 15 % foam APPLY TO FACE ONCE DAILY IN THE MORNING 09/05/2023 active Problems Problem Status Onset Date Problem Type Date of Resolution Source Lateral epicondylitis of right elbow active [facility]osis[facility] Ulnar neuritis, left active EncounterDiagnosisA ct [facility] Ulnar neuritis, right active EncounterDiagnosis Act [facility] Tenosynovitis, wrist active EncounterDiagnosisA ct [facility] Carpal tunnel syndrome of right wrist [facility] Encounters Encounter Type Encounter Reason Primary Diagnosis Location Date Ambulatory Lateral epicondylitis, right elbow Lateral epicondylitis, right elbow [facility] 02/17/2025 Ambulatory Lesion of ulnar nerve, right upper limb Lesion of ulnar nerve, right upper limb [facility] 11/28/2024 Ambulatory [facility] 08/15/2024 Ambulatory Pain [facility] 06/18/2024 [facility] 05/02/2024 Ambulatory Pain in unspecified wrist Pain in unspecified wrist [facility] 05/02/2024 Ambulatory [facility] Ambulatory Lesion of ulnar nerve, bilateral upper limbs Lesion of ulnar nerve, bilateral upper limbs [facility] 11/20/2023 Care Team Organization Name Specialty Phone Email Start Date End Da te [facility] 11/28/2024 03/18/20 [facility] 05/02/2024 [facility] Daugherty Primary [facility] 05/16/2024 [facility] PCP Train Crew Member 11/21/2023 03/18/2025 [facility] NO PCP Primary Care 11/20/2023
--- NOTE | 2025-05-05 15:57 | A.OFFPC_ITS ---
Vital Signs 05/05/25 15:58 Height 6 ft 1 in Weight 175 lb 6 oz BMI 23.1 BP 90/60 Blood Pressure Location Lt brachial Position Sitting Pulse 70 Pulse Source Pulse Oximeter Temp 97.3 F Temp Source Temporal Artery Scan Pulse Oximetry (%) 100 Oxygen Delivery Method Room Air Intake Visit Reasons: Ear wax build up, Requesting ENT referral Intake Note: Patient is here to follow up on Ear wax build up. Requesting ENT referral. Cable Worker Helper Required: No Sandblast Operator: Not Required per policy Accompanied by: Self / Same As Patient Allergies No Known Allergies Allergy (Verified 05/05/25 15:57) Tobacco use date assessed: 05/05/25 Dental Screening Dental Screen Date: 08/14/24 HPI HPI Comments History of Present Illness Details The patient is a 29-year-old male presenting with ear fullness and hearing loss, primarily in the left ear. The symptoms began approximately two weeks ago, coinciding with a scheduled annual hearing test at work, which revealed a shift in hearing acuity. The patient attempted self-treatment with ear drops and irrigation, which were previously effective for earwax issues, but these interventions did not alleviate the current symptoms. The patient reports a sensation of fullness and pressure behind the left ear, extending towards the jaw, but denies any significant pain. He has a history of earwax buildup but notes that this episode feels different, as if the issue is deeper within the ear canal. The patient has tried allergy medications, including Claritin, for three days without noticeable improvement, suggesting a possible non-allergic etiology. He attended a concert around the onset of symptoms, where he used an earplug in the left ear, raising concerns about potential wax impaction or hearing imbalance. 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 Cognitive needs: No Hearing needs: No Vision needs: No Questionnaire Thrive Questionnaire Date Thrive assessed: 08/14/24 I am a: Patient What is your living situation today?: I have a steady place to live Within the past 12 months, did the food you bought not last and you didn't have the money to get more?: Never true Within the past 12 months, did you worry whether your food would run out before you got money to buy more?: Never true Do you have trouble paying for medicines?: No Do you have trouble getting transportation to medical appointments?: No Do you have trouble paying your heating and electricity bill?: No Do you have trouble taking care of your child, family member or friend?: No Do you have trouble with day-to-day activities such as bathing, preparing meals, shopping, managing finances, etc.?: No Are you currently unemployed and looking for a job?: No Are you interested in more education?: No Please select the resources that you would like help with: None Currently or been in a relationship where the following occur: No concerns reported THRIVE Score: 0 ERVIN-7 AMB Questionnaire ERVIN-7 Date ERVIN - 7 assessed: 08/14/24 Source: Developed by Drs. Alessandro Encinas, Soniya Bills, Evangelist Tatum and colleagues, with an educational nuria from [employer]. Review of Systems Const Details: Not done. Physical exam (Primary Care) Vital Signs: Last Vital Signs Temp 97.3 F 05/05/25 15:58 Pulse 70 05/05/25 15:58 BP 90/60 05/05/25 15:58 Pulse Ox 100 05/05/25 15:58 Oxygen Delivery Method Room Air 05/05/25 15:58 BMI result Body Mass Index 23.1 Tobacco/Smoking Status: Tobacco use Status Tobacco use date assessed 05/05/25 05/05/25 16:04 Patient Tobacco Use Status Never used Tobacco 05/05/25 16:04 Tobacco use type Cigarette 05/05/25 16:04 e-Cigarette/Vaping Use Never Used 05/05/25 16:04 Thrive Assessment: Date of Thrive Assessment Date Thrive assessed 08/14/24 05/05/25 16:04 Currently or been in a relationship where the following occur: No concerns reported Const Other: Pertinent findings are in BOLD GENERAL APPEARANCE NAD, activity normal for age, well developed/ well nourished, no cyanosis, pallor, or diaphoresis. EYES lids/conjunctiva normal. EARS/NOSE/THROAT Mucous membranes moist, nares normal, lips/teeth normal uvula midline without oral pharyngeal erythema, exudate or swelling TMs normal bilaterally. No lymphangitis/lymphedema. HEAD/NECK normocephalic atraumatic, no facial trauma, neck is supple. RESPIRATORY respiratory effort normal, speaks in full sentences, no tripod position, no accessory muscle use. Lungs clear to auscultation without rhonchi, wheezes, rales CARDIAC Regular rate and rhythm, no edema. ABDOMINAL Soft, ND/NT. No evidence of fluid wave. No pulsatile masses on exam, rebound tenderness, Ruiz sign or pain over Mcburney's point. MUSCLES/EXTREMITIES No abnormal range of motion, no swelling. SKIN Warm, pink and dry. No rashes, dermatoses, petechiae or lesions. NEUROLOGICAL Speech is clear and appropriate. Normal level of consciousness. Gait and coordination are normal. 5/5 strength in all extremities. PSYCH Normal mood and affect. Judgement/competence is appropriate Ear canal: no wax or changes bilateraly. Coding Level of Care Code Est Pt Level 3 (34486) Diagnoses Ear fullness H93.8X9 Time Spent (min) 20 Assessment & Plan Assessment & Plan (1) Ear fullness: Code(s): H93.8X9 - Other specified disorders of ear, unspecified ear Category: Medical Plan: - Initiate Nasonex and Claritin for two weeks to address potential Eustachian tube dysfunction. - Follow-up in two weeks to assess improvement and consider ENT referral if symptoms persist. Plan I discussed with the patient the likely diagnosis of Eustachian tube dysfunction and the plan to use nasal spray and Claritin for two weeks. We talked about the connection between the ear, nose, and throat and how this might be affecting his symptoms. I advised a follow-up in two weeks to evaluate the effectiveness of the treatment and consider an ENT referral if necessary. We also discussed avoiding the use of earbuds to prevent further irritation and the possibility of repeating the hearing test to assess any changes in hearing acuity. Medications: New loratadine (Claritin) 10 mg PO DAILY PRN 14 tabs 0RF allergy symptoms mometasone 50 mcg/actuation (Nasonex 24hr Allergy) administer into each nostril 2 sprays intranasal BID 17 grams 0RF
[2025-05-05 15:58] VITALS: BP 90/60; PULSE 70; TEMP 36.3; O2SAT 100; BMI 23.1
== END 2025-05-05 16:27 | disposition home or self-care (01) ==
LOC: HO.HMCH 15:52
PROVIDERS: PCP Internal Medicine; Visit Provider Internal Medicine
DX: H93.8X9 Other specified disorders of ear, unspecified ear (principal)

== ENCOUNTER 2025-05-19 16:31 | Outpatient (AMB) | payer BC, SELFPAY ==
--- OUTSIDE RECORDS SUMMARY | 2025-05-19 08:00 | XMS_ITS | Encounter Summary ---
Author Organization [facility] Address [address] [place] [address] Care Team Providers Care Weeder Name Role Phone Eric Bobby MD Primary Care Provider [phone] Reason for Referral * Rehabilitation (Routine) - Pending Review Specialty Diagnoses / Procedures Referred By Anthony salvador Referred To Contact Rehabilitation Diagnoses Lateral epicondylitis of right elbow Ulnar neuritis, right Tenosynovitis, wrist Ruth Tanner PA-C [address] [facility] [address] [place] [address] Phone: tel: fax: [facility] Phone: tel: Referral ID Status Reason Start Date Expiration Date Visits Requested Visits Authorized [id number] Pending Review Support Services 05/20/2026 99 99 Question Answer Is this related to a Neurological Condition? No Comments Diagnosis: right common extensor tendinitis, mild right ulnar neuritis Special Instructions: Optimize strengthening, stretching, nerve glides, ergonomics optimization Please evaluate and treat with the following recommendations: PROM/AA ROM/AROM, Strengthening, Flexibility, Joint Mobilization, Modalities PRN, Moist Heat/Cold Pack, and Home Exercise Program Frequency & Duration: 1-2x/week for 4-6 weeks. Reason for Visit * Reason Comments Pain Pain Encounter Details Date Type Department Care Team (Late st Contact Info) Description 05/19/2025 8:00 AM EDT [facility] [address] [place] [address] Ruth Tanner PA-C [address] [facility] [address] [place] [address] Lateral epicondylitis of right elbow (Primary Dx); Ulnar neuritis, right; Tenosynovitis, wrist Social History Tobacco Use Types Packs/Day Years Used Date Smoking Tobacco: Never Assessed Sex and Gender Information Value Date Recorded Sex Assigned at Male 05/02/2024 12:44 PM EDT Legal Sex Male 3:05 PM EDT Gender Identity Male 05/02/2024 12:44 PM EDT Sexual Orientation Asexual 05/02/2024 12 :44 PM EDT documented as of this encounter Plan of Treatment Upcoming Encounters Date Type Department Care Team (Late st Contact Info) Description 08/18/2025 8:00 AM EST [facility] [address] [place] [address] Alvaro Castro MD [address] [place] [address] [address] [place] [address] Scheduled Referrals Name Type Priority Associated Diagnoses Orde r Schedule Amb Referral to Therapy Services (PT or OT) Outpatient Referral Routine Lateral epicondylitis of right elbow Ulnar neuritis, right Tenosynovitis, wrist Ordered: 05/19/2025 documented as of this encounter Visit Diagnoses Diagnosis Lateral epicondylitis of right elbow- Primary Ulnar neuritis, right Tenosynovitis, wrist Other tenosynovitis of hand and wrist documented in this encounter Care Teams Weeder Relationship Specialty Start Date End Date Eric Bobby MD [address] [place] [address] Drive [address] [place] [address] PCP - General 05/02/24 documented as of this encounter
[2025-05-19 16:33] VITALS: BP 102/50; PULSE 56; RESP 18; TEMP 36.2; O2SAT 97; BMI 23.2
--- NOTE | 2025-05-19 16:33 | A.OFFPC_ITS ---
Vital Signs 05/19/25 16:33 Height 6 ft 1 in Weight 176 lb 2 oz BMI 23.2 BP 102/50 L Blood Pressure Location Lt brachial Position Sitting Respiration 18 Pulse 56 Pulse Source Pulse Oximeter Temp 97.1 F Temp Source Temporal Artery Scan Pulse Oximetry (%) 97 Oxygen Delivery Method Room Air Intake Visit Reasons: earflush Cell Repairer Required: No Accompanied by: Self / Same As Patient Allergies No Known Allergies Allergy (Verified 05/19/25 16:47) Medication List - Last Reconciled 05/19/25 by Lisha Vasquez MD [id number] 0.15-3.1-1.2 % (Cabtreo) 1 appl topical BEDTIME dutasteride 0.5 mg PO DAILY loratadine (Claritin) 10 mg PO DAILY PRN minoxidil 2.5 mg PO BID mometasone 50 mcg/actuation (Nasonex 24hr Allergy) 2 sprays intranasal BID Tobacco use date assessed: 05/19/25 Dental Screening Dental Screen Date: 05/19/25 Did you have a dental visit in the last 12 months?: Yes Did you have a dental problem in the last 6 months where you did not have access to dental care?: No Was dental information given to patient?: Patient has dentist HPI HPI Comments History of Present Illness Details 30 yo M presenting for 2 weeks follow-up . The patient was seen in clinic two weeks ago and he was prescribed Claritin and NAsonex for ear fullness. The patient continues to feel fullness in his left ear. The patient's ear canals were clear with no cerumen so ear flush was not completed. Advised the patient to see ENT specialist for their input. 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 Cognitive needs: No Hearing needs: No Vision needs: No Questionnaire Thrive Questionnaire Date Thrive assessed: 08/14/24 I am a: Patient What is your living situation today?: I have a steady place to live Within the past 12 months, did the food you bought not last and you didn't have the money to get more?: Never true Within the past 12 months, did you worry whether your food would run out before you got money to buy more?: Never true Do you have trouble paying for medicines?: No Do you have trouble getting transportation to medical appointments?: No Do you have trouble paying your heating and electricity bill?: No Do you have trouble taking care of your child, family member or friend?: No Do you have trouble with day-to-day activities such as bathing, preparing meals, shopping, managing finances, etc.?: No Are you currently unemployed and looking for a job?: No Are you interested in more education?: No Please select the resources that you would like help with: None Currently or been in a relationship where the following occur: No concerns reported THRIVE Score: 0 ERVIN-7 AMB Questionnaire ERVIN-7 Date ERVIN - 7 assessed: 08/14/24 Source: Developed by Drs. Alessandro Encinas, Soniya Bills, Evangelist Tatum and colleagues, with an educational nuria from [employer]. Review of Systems Const Details: As per HPI. Physical exam (Primary Care) Vital Signs: Last Vital Signs Temp 97.1 F 05/19/25 16:33 Pulse 56 05/19/25 16:33 Resp 18 05/19/25 16:33 BP 102/50 L 05/19/25 16:33 Pulse Ox 97 05/19/25 16:33 Oxygen Delivery Method Room Air 05/19/25 16:33 BMI result Body Mass Index 23.2 Tobacco/Smoking Status: Tobacco use Status Tobacco use date assessed 05/19/25 05/19/25 16:51 Patient Tobacco Use Status Never used Tobacco 05/19/25 16:51 Tobacco use type Cigarette 05/19/25 16:51 e-Cigarette/Vaping Use Never Used 05/19/25 16:51 Thrive Assessment: Date of Thrive Assessment Date Thrive assessed 08/14/24 05/19/25 16:51 Currently or been in a relationship where the following occur: No concerns reported Const Other: Pertinent findings are in BOLD GENERAL APPEARANCE NAD, activity normal for age, well developed/ well nourished, no cyanosis, pallor, or diaphoresis. EYES lids/conjunctiva normal. EARS/NOSE/THROAT Mucous membranes moist, nares normal, lips/teeth normal uvula midline without oral pharyngeal erythema, exudate or swelling TMs normal bilaterally. No lymphangitis/lymphedema. HEAD/NECK normocephalic atraumatic, no facial trauma, neck is supple. RESPIRATORY respiratory effort normal, speaks in full sentences, no tripod position, no accessory muscle use. Lungs clear to auscultation without rhonchi, wheezes, rales CARDIAC Regular rate and rhythm, no edema. ABDOMINAL Soft, ND/NT. No evidence of fluid wave. No pulsatile masses on exam, rebound tenderness, Ruiz sign or pain over Mcburney's point. MUSCLES/EXTREMITIES No abnormal range of motion, no swelling. SKIN Warm, pink and dry. No rashes, dermatoses, petechiae or lesions. NEUROLOGICAL Speech is clear and appropriate. Normal level of consciousness. Gait and coordination are normal. 5/5 strength in all extremities. PSYCH Normal mood and affect. Judgement/competence is appropriate Ears: No cerumen impaction and no changes in ear canals. Coding Level of Care Code Est Pt Level 3 (77357) Diagnoses Sensation of fullness in left ear H93.8X2 Laterality: left Time Spent (min) 20 Assessment & Plan Assessment & Plan (1) Ear fullness: Code(s): H93.8X9 - Other specified disorders of ear, unspecified ear Category: Medical Qualifiers: Laterality: left Qualified Code(s): H93.8X2 - Other specified disorders of left ear Plan: - Ear flush not completed as the patient's ear canals were clear. - ENT referral as the patient continues to have symptoms despite the use of Claritin and Nasonex. Plan The appointment grid mentioned the patient is presenting for ear flush. Ear canals clear so no ear flush was done. The appointment was for follow-up. Since the patient continues to experience symptoms ENT referral was placed. Advised the patient to call and schedule his appointment. Orders: Referrals Ear/Nose/Throat Referral H93.8X9 - Other specified disorders of ear, unspecified ear
--- OUTSIDE RECORDS SUMMARY | 2025-05-19 19:16 | XMS_ITS | Clinical Summary ---
Author Organization [facility] Address [address] [place] [address] Care Team Providers Care Risk Consulting Treasury Director Name Role Phone Eric Bobby MD Primary Care Provider [phone] Allergies No known active allergies Medications Finacea [...] Encounters Date Type Department Care Team Description 05/19/2025 8:00 AM EDT [place] [address] Ruth Tanner PA-C Lateral epicondylitis of right elbow (Primary Dx); Ulnar neuritis, right; Tenosynovitis, wrist 02/17/2025 8:00 AM EDT [place] [address] Alvaro Castro MD Lateral epicondylitis of right [...] 8:00 AM EST [facility] [address] [place] [address] Alvaro Castro MD [address] [place] [address] Health Maintenance Due Date Last Done Comments Hepatitis C Virus Screening 1993 HIV Screening 2006 DTaP/Tdap/Td Vaccines (1 - Tdap) 2012 Hepatitis B Vaccines (1 of 3 - 19+ 3-dose series) 2012 Influenza Vaccine 02/21/2025 COVID-19 Vaccine ( - 2024-2 6 season) 2025 06/29/2021, 11/01/2020 HPV Vaccines (No Doses Required) Completed Pneumococcal Vaccine: Pediatric (0-5 Years) and At-Risk Patients (6 to 49 Years) Aged Out No longer eligible b ased on patient's age to complete this topic Insurance [facility] [employer] Care Teams Risk Consulting Treasury Director Relationship Specialty Start Date End Date Eric Bobby MD [address] [place] [address] [facility] - General 05/02/24
== END 2025-05-19 17:12 | disposition home or self-care (01) ==
LOC: HO.HMCH 16:32
PROVIDERS: PCP Internal Medicine; Visit Provider Internal Medicine
DX: H93.8X2 Other specified disorders of left ear (principal)